=== PATIENT | male | born 1930 | race Caucasian/White ===

== ENCOUNTER 2018-01-06 20:33 | Inpatient (IN) | payer OTHER ==
--- NOTE | 2018-01-06 20:41 | PDOC ---
Rapid Medical Evaluation Chief Complaint: Chest Pain Time Seen by Provider: 01/06/18 20:36 Medical Evaluation: Allergies Allergy/AdvReac Type Severity Reaction Status Date / Time No Known Drug Allergies Allergy Unverified 08/23/14 13:27 01/06/18 20:36 Pt presents with one week of chest pain and shortness of breath. Admits to cough. Also endorses a 15 lb weight gain over the last week. Sleeping on two pillows Exam: O2 Sat 91%, lungs with decreased sounds to the bases Orders: labs, EKG, IV, urine, cxr Pt to proceed to ED for further evaluation Discharge Disposition - Diagnosis Shortness of breath - Referrals - Patient Instructions - Post Discharge Activity
[2018-01-06 21:14] LABS: BASO % 0.8 % (0-2.0); EOS % 1.7 % (0-4.5); HEMATOCRIT 36.7 % (35.4-49); HEMOGLOBIN 12.5 GM/dL (11.7-16.9); LYMPH % 10.6 % (8-40); MCH 30.4 pg (25.7-33.7); MEAN CELL VOLUME 89.4 fl (80-96); MEAN PLT VOLUME 7.8 fl (7.5-11.1); MONO % 9.1 % (3.8-10.2); NEUT % 77.8 % (42.8-82.8); PLATELET COUNT 214 K/MM3 (134-434); RDW 14.9 % (11.9-15.9); WHITE BLOOD COUNT 8.5 K/mm3 (4.0-10.0)
[2018-01-06 21:42] LABS: INR 1.12 (0.83-1.09); PROTHROMBIN TIME (PATIENT) 13.2 SEC (9.7-13.0)
[2018-01-06 21:59] LABS: ALK PHOS 106 U/L (45-117); ANION GAP 13 MMOL/L (8-16); BILIRUBIN,TOTAL 1.5 mg/dL (0.2-1); BLOOD UREA NITROGEN 33 mg/dL (7-18); CALCIUM 8.7 mg/dL (8.5-10.1); CHLORIDE 95 mmol/L (98-107); CO2 24 mmol/L (22-28); CREATININE 1.4 mg/dL (0.55-1.3); GLUCOSE,RANDOM 140 mg/dL (74-106); MAGNESIUM 1.8 mg/dL (1.8-2.4); N-TERMINAL BNP 10045.1 pg/ml (5-450); POTASSIUM 3.7 mmol/L (3.5-5.1); SGOT/AST 39 U/L (15-37); SGPT/ALT 42 U/L (13-61); SODIUM 132 mmol/L (136-145); TOT PROT 7.5 g/dl (6.4-8.2)
[2018-01-06] MEDS ORDERED: FUROSEMIDE 40 MG/4 ML INJECTABLE VIAL IVPUSH ONE (22:02)
[2018-01-06 22:11] LABS: BASO % 0.9 % (0-2.0); EOS % 1.6 % (0-4.5); HEMOGLOBIN 12.3 GM/dL (11.7-16.9); LYMPH % 11.4 % (8-40); MCH 30.5 pg (25.7-33.7); MCHC 34.1 g/dl (32.0-35.9); MEAN CELL VOLUME 89.5 fl (80-96); MEAN PLT VOLUME 7.3 fl (7.5-11.1); MONO % 9.9 % (3.8-10.2); NEUT % 76.2 % (42.8-82.8); PLATELET COUNT 219 K/MM3 (134-434); RBC 4.02 M/mm3 (4.00-5.60); RDW 14.3 % (11.9-15.9); WHITE BLOOD COUNT 7.9 K/mm3 (4.0-10.0)
[2018-01-06] MEDS ORDERED: ASPIRIN COATED 81 MG TABLET.EC PO ONE (22:13)
[2018-01-06 22:22] LABS: INR 1.15 (0.83-1.09); PROTHROMBIN TIME (PATIENT) 13.6 SEC (9.7-13.0)
--- NOTE | 2018-01-06 22:31 | PDOC ---
History of Present Illness - General History Source: Patient, Primary Care Provider Exam Limitations: Dementia - History of Present Illness Initial Comments: 01/06/18 22:29 The patient is an 87M with a PMH of HTN, EF < 20%, implanted defibrillator, noncompliant, prostate ca w/ questionable mets, T2DM, LBBB, cardiomyopathy who presents to the ER with his for complaints of SOB. The patient cannot provide any history and his provides little history. History is provided by his PCP. His PCP, Dr. Lloyd, states that the patient has had worsening SOB for the past week or two with orthopnea and chronic cough. The patient is noncompliant with his medications. The patient's only acute complaints is that he cannot lay down flat. He denies any CP, fevers, chills, nausea, vomiting. Cards: Dr. Shukla at [facility] <Harsh Mcdermott - Last Filed: 01/07/18 00:08> <Champ Bob - Last Filed: 01/10/18 08:04> - General Chief Complaint: Chest Pain Stated Complaint: CHEST PAIN Time Seen by Provider: 01/06/18 20:36 Past History - Past Medical History Anemia: No Asthma: No Cancer: Yes (PROSTATE) Cardiac Disorders: Yes (ANGINA;CARDIOMYOPATHY;LBBB) COPD: No Dementia: No Diabetes: No GI Disorders: No Disorders: No HTN: Yes Hypercholesterolemia: Yes Seizures: No Thyroid Disease: No - Surgical History Abdominal Surgery: (HERNIA) Appendectomy: No Cholecystectomy: No Lung Surgery: No Neurologic Surgery: No - Suicide/Smoking/Psychosocial Hx Smoking Status: No Smoking History: Former smoker Have you smoked in the past 12 months: Yes Number of Cigarettes Smoked Daily: 0 Information on smoking cessation initiated: No Hx Alcohol Use: No Drug/Substance Use Hx: No Substance Use Type: None Hx Substance Use Treatment: No <Harsh Mcdermott - Last Filed: 01/07/18 00:08> <Champ Bob - Last Filed: 01/10/18 08:04> - Past Medical History Allergies/Adverse Reactions: Allergies Allergy/AdvReac Type Severity Reaction Status Date / Time No Known Drug Allergies Allergy Unverified 01/07/18 07:56 Home Medications: Ambulatory Orders Atorvastatin Ca [Lipitor] 1 tab PO DAILY 12/24/13 Ranitidine HCl [Zantac] 150 mg PO DAILY 12/25/13 Aspirin 81 mg PO DAILY 08/23/14 Folic Acid 1 mg PO DAILY 01/06/18 Furosemide [Lasix] 40 mg PO BID 01/06/18 Isosorbide Mononitrate [Isosorbide Mononitrate ER] 60 mg PO BID 01/06/18 Losartan Potassium 100 mg PO DAILY 01/06/18 Metoprolol Tartrate [Lopressor] 100 mg PO DAILY 01/06/18 Spironolactone [Aldactone -] 25 mg PO DAILY 01/06/18 Carvedilol [Coreg -] 3.125 mg PO BID #60 tablet 01/09/18 Potassium Chloride [Potassium Chloride Oral Liquid] 40 meq PO DAILY 30 Days cup 01/09/18 Review of Systems - Review of Systems Able to Perform ROS?: No (dementia) <Harsh Mcdermott - Last Filed: 01/07/18 00:08> *Physical Exam - Vital Signs Last Vital Signs Temp Pulse Resp BP Pulse Ox 97.8 F 104 H 24 H 131/85 91 L 01/06/18 20:36 01/06/18 20:36 01/06/18 20:36 01/06/18 20:36 01/06/18 20:36 - Physical Exam Comments: 01/07/18 00:16 GENERAL: Well developed, well nourished. Awake and alert. No acute distress. HEENT: Normocephalic, atraumatic. Hearing grossly normal. Moist mucous membranes. PERRLA, EOMI. No conjunctival pallor. Sclera are non-icteric. NECK: Supple. Full ROM. No JVD. CARDIOVASCULAR: Regular rate and rhythm. No murmurs, rubs, or gallops. PULMONARY: No evidence of respiratory distress. Lungs clear to auscultation bilaterally. No wheezing, rales or rhonchi. ABDOMINAL: Soft. Non-tender. Non-distended. No rebound or guarding. GENITOURINARY: No CVA tenderness bilaterally. MUSCULOSKELETAL: Normal range of motion at all joints. No bony deformities or tenderness. EXTREMITIES: No cyanosis. No clubbing. 4+ pitting edema in b/l LE. No calf tenderness or swelling. SKIN: Warm and dry. Normal capillary refill. No rashes. No jaundice. NEUROLOGICAL: Alert, awake, appropriate. Cranial nerves 2-12 grossly intact. Normal speech. Gait is normal without ataxia. PSYCHIATRIC: Cooperative. Good eye contact. Appropriate mood and affect. <Harsh Mcdermott - Last Filed: 01/07/18 00:08> - Vital Signs Last Vital Signs Temp Pulse Resp BP Pulse Ox 97.6 F 96 H 20 128/89 96 01/09/18 09:07 01/09/18 09:07 01/09/18 09:07 01/09/18 09:07 01/08/18 22:00 <Champ Bob - Last Filed: 01/10/18 08:04> ED Treatment Course - LABORATORY CBC & Chemistry Diagram: 01/06/18 21:55 01/06/18 21:55 - ADDITIONAL ORDERS Additional order review: Laboratory Results 01/06/18 01/06/18 01/06/18 21:55 21:04 21:04 PT with INR 13.60 H INR 1.15 H Sodium 132 L Potassium 3.7 Chloride 95 L Carbon Dioxide 24 Anion Gap 13 BUN 33 H Creatinine 1.4 H Creat Clearance w eGFR 48.05 Random Glucose 140 H Calcium 8.7 Magnesium 1.8 Total Bilirubin 1.5 H AST 39 H ALT 42 Alkaline Phosphatase 106 Creatine Kinase 316 H Troponin I 0.21 H B-Natriuretic Peptide 43360.1 H Total Protein 7.5 Albumin 4.0 01/06/18 21:04 PT with INR 13.20 H INR 1.12 H Sodium Potassium Chloride Carbon Dioxide Anion Gap BUN Creatinine Creat Clearance w eGFR Random Glucose Calcium Magnesium Total Bilirubin AST ALT Alkaline Phosphatase Creatine Kinase Troponin I B-Natriuretic Peptide Total Protein Albumin 01/06/18 01/06/18 21:55 21:04 RBC 4.02 4.10 MCV 89.5 89.4 MCHC 34.1 34.0 RDW 14.3 14.9 MPV 7.3 L 7.8 Neutrophils % 76.2 77.8 D Lymphocytes % 11.4 10.6 D Monocytes % 9.9 9.1 Eosinophils % 1.6 1.7 Basophils % 0.9 0.8 <Harsh Mcdermott - Last Filed: 01/07/18 00:08> - LABORATORY CBC & Chemistry Diagram: 01/09/18 05:45 01/09/18 05:45 - ADDITIONAL ORDERS Additional order review: 01/06/18 01/06/18 21:55 21:04 RBC 4.02 4.10 MCV 89.5 89.4 MCHC 34.1 34.0 RDW 14.3 14.9 MPV 7.3 L 7.8 Neutrophils % 76.2 77.8 D Lymphocytes % 11.4 10.6 D Monocytes % 9.9 9.1 Eosinophils % 1.6 1.7 Basophils % 0.9 0.8 - Medications Given in the ED: ED Medications Discontinued Medications Generic Name Dose Route Start Last Admin Trade Name Erna PRN Reason Stop Dose Admin Aspirin 162 mg 01/06/18 22:13 01/06/18 23:00 Ecotrin - PO 01/06/18 22:14 162 mg ONCE ONE Administration Aspirin 81 mg 01/07/18 10:00 01/08/18 09:10 Asa - PO 81 mg DAILY SUDHAKAR Administration Carvedilol 3.125 mg 01/08/18 22:00 01/08/18 22:18 Coreg - PO Not Given BID SUDHAKAR Folic Acid 1 mg 01/07/18 10:00 01/08/18 09:10 Folic Acid - PO 1 mg DAILY SUDHAKAR Administration Furosemide 80 mg 01/06/18 22:02 01/06/18 22:59 Lasix Injection - IVPUSH 01/06/18 22:03 80 mg ONCE ONE Administration Furosemide 40 mg 01/07/18 07:15 01/09/18 06:36 Lasix Injection - IVPUSH 40 mg BID@0600,1400 SUDHAKAR Administration Heparin Sodium (Porcine) 5,000 unit 01/07/18 10:00 01/08/18 22:18 Heparin - SQ Not Given BID [facility] Insulin Aspart 1 vial 01/08/18 22:00 01/09/18 06:31 Novolog Vial Sliding Scale - SQ Not Given ACHS [facility] Protocol Ipratropium Raymond 1 amp 01/09/18 06:50 01/09/18 06:56 Atrovent 0.02% Nebulizer - NEB 01/09/18 06:51 1 amp ONCE ONE Administration Isosorbide Mononitrate 60 mg 01/07/18 10:00 01/08/18 09:09 Imdur - PO 60 mg DAILY SUDHAKAR Administration Losartan Potassium 100 mg 01/07/18 10:00 01/08/18 09:10 Cozaar - PO 100 mg DAILY SUDHAKAR Administration Potassium Chloride 40 meq 01/08/18 16:00 01/09/18 06:36 Potassium Chloride Oral Liquid PO 01/09/18 16:01 40 meq Q12H SUDHAKAR Administration Spironolactone 25 mg 01/07/18 10:00 01/08/18 09:10 Aldactone - PO 25 mg DAILY SUDHAKAR Administration <Champ Bob - Last Filed: 01/10/18 08:04> Medical Decision Making - Medical Decision Making 01/06/18 23:33 The patient is an 88M with a PMH of CHF with EF <20% who presents to the ER with worsening orthopnea and SOB concerning for CHF exacerbation, ACS, COPD ( possibly diagnosis per Dr. Lloyd). CXR indicates interstitial edema indicating CHF. BNP elevated. Trop of 0.2, likely demand ischemia. Results d/w Dr. Lloyd who agrees. Giving lasix and asa. I have endorsed the patient to [facility] for admission under Dr. Campbell. <Harsh Mcdermott - Last Filed: 01/07/18 00:08> - Critical Care Time Total Critical Care Time (minutes): 45 Critical Care Statement: The care of this patient involved high complexity decision making to prevent further life threatening deterioration of the patient 's condition and/or to evaluate & treat vital organ system(s) failure or risk of failure. <Champ Bob - Last Filed: 01/10/18 08:04> *DC/Admit/Observation/Transfer - Discharge Dispostion Decision to Admit order: Yes <Harsh Mcdermott - Last Filed: 01/07/18 00:08> <Champ Bob - Last Filed: 01/10/18 08:04> Diagnosis at time of Disposition: Shortness of breath Acute exacerbation of CHF (congestive heart failure) Qualifiers: Heart failure type: unspecified Qualified Code(s): I50.9 - Heart failure, unspecified - Discharge Dispostion Disposition: HOME Condition at time of disposition: Improved
[2018-01-06] MEDS ORDERED: ASPIRIN COATED 81 MG TABLET.EC ONE (22:39)
[2018-01-06] MEDS ORDERED: FUROSEMIDE 40 MG/4 ML INJECTABLE VIAL ONE (22:39)
[2018-01-06 22:47] LABS: ALK PHOS 105 U/L (45-117); ANION GAP 13 MMOL/L (8-16); BILIRUBIN,TOTAL 1.5 mg/dL (0.2-1); BLOOD UREA NITROGEN 32 mg/dL (7-18); CALCIUM 8.8 mg/dL (8.5-10.1); CHLORIDE 95 mmol/L (98-107); CO2 25 mmol/L (22-28); CREATININE 1.3 mg/dL (0.55-1.3); GLUCOSE,RANDOM 123 mg/dL (74-106); MAGNESIUM 1.9 mg/dL (1.8-2.4); N-TERMINAL BNP 9827.3 pg/ml (5-450); POTASSIUM 3.7 mmol/L (3.5-5.1); SGOT/AST 39 U/L (15-37); SGPT/ALT 40 U/L (13-61); SODIUM 133 mmol/L (136-145); TOT PROT 7.3 g/dl (6.4-8.2)
--- NOTE | 2018-01-06 23:05 | PDOC ---
Attending Attestation - Resident Resident Name: Harsh Mcdermott - ED Attending Attestation I have performed the following: I have examined & evaluated the patient, The case was reviewed & discussed with the resident, I agree w/resident's findings & plan, Exceptions are as noted - HPI HPI: 01/06/18 23:01 The patient is a 87 year old male with past medical history significant for Prostate CA, HTN, HLD, LBBB, DM2, cardiomyopathy, CHF presents to the emergency department with chest pain and shortness of breath. The patient presents with a one-week onset of shortness of breath and chest pain, associated with a nonproductive cough. The patient reports he has to sleep on 2 pillows at night. Denies fever, chills, abdominal pain, urinary symptoms or changes in bowel habits. Allergies: NKDA. Social history: Former smoker, no alcohol or recreational drug use reported. Surgical history: Hernia. PCP: Lynsey Sun. 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 - Physicial Exam PE: 01/06/18 23:03 GENERAL: Awake, alert, and fully oriented, in no acute distress. HEAD: No signs of trauma EYES: PERRLA, EOMI, sclera anicteric, conjunctiva clear ENT: Auricles normal inspection, hearing grossly normal, nares patent, oropharynx clear without exudates. Moist mucosa NECK: Nontender, no stepoffs, Normal ROM, supple, no lymphadenopathy, JVD, or masses LUNGS: + bilateral rales HEART: Regular rate and rhythm, normal S1 and S2, no murmurs, rubs or gallops ABDOMEN: Soft, nontender, normoactive bowel sounds. No guarding, no rebound. No masses EXTREMITIES: + 2PE BLE NEUROLOGICAL: Cranial nerves II through XII intact. 5/5 strength and sensation in all extremities, Normal speech, normal gait, normal cerebellar function SKIN: Warm, Dry, normal turgor, no rashes or lesions noted. - Medical Decision Making 01/06/18 23:04 87 M with CP/SOB. Exam notable for rales and pitting edema of BLE. Likely CHF exacerbation. - Labs, trop, BNP - CXR - Lasix - BiPAP PRN - Admit tele
--- NOTE | 2018-01-06 23:31 | HP ---
CHIEF COMPLAINT: Chest Pain, Increased SOB, B/L Lower Extremity Swelling PCP: Dr. Ze Lloyd HISTORY OF PRESENT ILLNESS: This is a 88 y/o man with significant past medical history of Hypertension, EF < 20% s/p Defibrillator, Cardiomyopathy, DM, Prostate Ca ?Mets, Dementia, Noncompliant with medications. Who presents to the ED with his caregiver for Chest Pain, SOB, Orthopnea, lower extremity swelling x 1 week, worse today. Patient is [place] his caregiver translated. Patient reports having SOB, WATSON , Orthopnea, CP and a non-productive cough. Patient also reports having lower extremity swelling with leg weakness. Per the caregiver patient sits up all night because of his SOB, he is unable to take more then 5-6 steps without labored breathing. Per the caregiver, the patient took his medications yesterday and today. Per the caregiver the patient has had abdominal distention , and reports abdominal pain after eating. She also reports a 5-6lb weight gain over the last several days. Patient denies fever, chills, dizziness, palpitations, AP, N/V/D, dysuria ER course was notable for: (1) Chest Xray image- pulm vascular congestion (2) BNP 10,045 (3) Trop 0.21 Recent Travel: None PAST MEDICAL HISTORY: See HPI PAST SURGICAL HISTORY: Defibrillator Hernia Repair Social History: Smoking: Former Alcohol: None Drugs: None Lives with family Family History: Allergies No Known Drug Allergies Allergy (Unverified 01/06/18 20:39) HOME MEDICATIONS: Home Medications Medication Instructions Recorded Atorvastatin Ca [Lipitor] 1 tab PO DAILY 12/24/13 Cholecalciferol (Vitamin D3) 1 tab PO DAILY 12/24/13 [Vitamin D3] Isosorbide Mononitrate 1 tab PO DAILY 12/24/13 Losartan/Hydrochlorothiazide 1 tab PO DAILY 12/24/13 Social History Smoking history Former smoker Have you smoked in the past 12 Yes months Hx Alcohol Use No [Losartan-Hctz 50-12.5 mg Tab] Ranitidine HCl [Zantac] 150 mg PO DAILY 12/25/13 Aspirin 81 mg PO DAILY 08/23/14 Atorvastatin Calcium #90 08/23/14 Celecoxib #30 08/23/14 Isosorbide Mononitrate [Isosorbide #90 06/26/15 Mononitrate Er] Losartan/Hydrochlorothiazide #90 08/23/14 [Losartan-Hctz 50-12.5 Mg Tab] Meclizine HCl #90 08/23/14 Ranitidine HCl #60 08/23/14 FA/Mv,Ca,Iron,Min/Lycopene/Lut 1 each PO DAILY 11/18/14 [Centrum Tablet] Meclizine HCl 25 mg PO DAILY 11/18/14 REVIEW OF SYSTEMS CONSTITUTIONAL: generalized weakness,weight change Absent: fever, chills, diaphoresis, malaise, loss of appetite HEENT: Absent: rhinorrhea, nasal congestion, throat pain, throat swelling, difficulty swallowing, mouth swelling, ear pain, eye pain, visual changes CARDIOVASCULAR: chest pain, peripheral edema Absent: syncope, palpitations, irregular heart rate, lightheadedness RESPIRATORY: cough, shortness of breath, dyspnea with exertion, orthopnea, Absent: wheezing, stridor, hemoptysis GASTROINTESTINAL: abdominal distension Absent: abdominal pain, nausea, vomiting, diarrhea, constipation, melena, hematochezia GENITOURINARY: Absent: dysuria, frequency, urgency, hesitancy, hematuria, flank pain, genital pain MUSCULOSKELETAL: Absent: myalgia, arthralgia, joint swelling, back pain, neck pain SKIN: Absent: rash, itching, pallor HEMATOLOGIC/IMMUNOLOGIC: Absent: easy bleeding, easy bruising, lymphadenopathy, frequent infections ENDOCRINE: Absent: unexplained weight gain, unexplained weight loss, heat intolerance, cold intolerance NEUROLOGIC: Absent: headache, focal weakness or paresthesias, dizziness, unsteady gait, seizure, mental status changes, bladder or bowel incontinence PSYCHIATRIC: Absent: anxiety, depression, suicidal or homicidal ideation, hallucinations. PHYSICAL EXAMINATION Vital Signs - 24 hr 01/06/18 20:36 Temperature 97.8 F Pulse Rate 104 H Respiratory 24 H Rate Blood Pressure 131/85 O2 Sat by Pulse 91 L Oximetry (%) GENERAL: Awake, alert, and fully oriented, in no acute distress. HEAD: Normal with no signs of trauma. EYES: Pupils equal, round and reactive to light, extraocular movements intact, sclera anicteric, conjunctiva clear. No lid lag. EARS, NOSE, THROAT: Ears normal, nares patent, oropharynx clear without exudates. Moist mucous membranes. NECK: Normal range of motion, supple without lymphadenopathy, JVD, or masses. LUNGS: Coarse crackles and rales throughout lung grubbs. No wheezes. No accessory muscle use. HEART: Irregular rate and rhythm, normal S1 and S2 without murmur, rub or gallop. ABDOMEN: Firm, distended, hypoactive bowel sounds,+ hepatomegaly. nontender, no guarding, no rebound, no masses. or splenomegaly. MUSCULOSKELETAL: Normal range of motion at all joints. No bony deformities or tenderness. No CVA tenderness. UPPER EXTREMITIES: 2+ pulses, warm, well-perfused. No cyanosis. No clubbing. No peripheral edema. LOWER EXTREMITIES: 2+ pulses, warm, well-perfused. No calf tenderness. +2 pitting B/L peripheral edema. NEUROLOGICAL: Cranial nerves II-XII intact. Normal speech. Gait not observed. PSYCHIATRIC: Cooperative. Good eye contact. Appropriate mood and affect. SKIN: Warm, dry, normal turgor, no rashes or lesions noted, normal capillary refill. Laboratory Results - last 24 hr 01/06/18 01/06/18 01/06/18 21:04 21:04 21:04 WBC 8.5 RBC 4.10 Hgb 12.5 Hct 36.7 D MCV 89.4 MCH 30.4 MCHC 34.0 RDW 14.9 Plt Count 214 MPV 7.8 Absolute Neuts (auto) 6.6 Neutrophils % 77.8 D Lymphocytes % 10.6 D Monocytes % 9.1 Eosinophils % 1.7 Basophils % 0.8 Nucleated RBC % 0 PT with INR 13.20 H INR 1.12 H Sodium 132 L Potassium 3.7 Chloride 95 L Carbon Dioxide 24 Anion Gap 13 BUN 33 H Creatinine 1.4 H Creat Clearance w eGFR 48.05 Random Glucose 140 H Calcium 8.7 Magnesium 1.8 Total Bilirubin 1.5 H AST 39 H ALT 42 Alkaline Phosphatase 106 Creatine Kinase Creatine Kinase Index CK-MB (CK-2) Troponin I B-Natriuretic Peptide 18477.1 H Total Protein 7.5 Albumin 4.0 01/06/18 01/06/18 01/06/18 21:04 21:55 21:55 WBC RBC Hgb Hct MCV MCH MCHC RDW Plt Count MPV Absolute Neuts (auto) Neutrophils % Lymphocytes % Monocytes % Eosinophils % Basophils % Nucleated RBC % PT with INR 13.60 H INR 1.15 H Sodium 133 L Potassium 3.7 Chloride 95 L Carbon Dioxide 25 Anion Gap 13 BUN 32 H Creatinine 1.3 Creat Clearance w eGFR 52.34 Random Glucose 123 H Calcium 8.8 Magnesium 1.9 Total Bilirubin 1.5 H AST 39 H ALT 40 Alkaline Phosphatase 105 Creatine Kinase 316 H Creatine Kinase Index 3.8 CK-MB (CK-2) 12.1 H Troponin I 0.21 H B-Natriuretic Peptide 9827.3 H Total Protein 7.3 Albumin 4.0 01/06/18 21:55 WBC 7.9 RBC 4.02 Hgb 12.3 Hct 36.0 MCV 89.5 MCH 30.5 MCHC 34.1 RDW 14.3 Plt Count 219 MPV 7.3 L Absolute Neuts (auto) 6.1 Neutrophils % 76.2 Lymphocytes % 11.4 Monocytes % 9.9 Eosinophils % 1.6 Basophils % 0.9 Nucleated RBC % 0 PT with INR INR Sodium Potassium Chloride Carbon Dioxide Anion Gap BUN Creatinine Creat Clearance w eGFR Random Glucose Calcium Magnesium Total Bilirubin AST ALT Alkaline Phosphatase Creatine Kinase Creatine Kinase Index CK-MB (CK-2) Troponin I B-Natriuretic Peptide Total Protein Albumin ASSESSMENT/PLAN: This is a 88 y/o man with PMHx of: HTN, EF 20%, Defib, LBBB, Cardiomyopathy, DM , Prostate Ca ?METs, Dementia. Admitted to Telemetry for Acute CHF Exacerbation , Chest Pain r/o ACS or further evaluation of their emergent condition. Plan: FEN Fluid Restriction 1L Replete Lytes prn Low Na, Diabetic Diet DVT ppx TEDs Heparin SQ Dispo: Requires Inpatient Care Problem List - Problem (1) Acute exacerbation of CHF (congestive heart failure) Assessment/Plan: - Continue cardiac monitoring - Serial Enzymes - Chest Xray- image pulm vascular congestion - BNP > 10,000 - Lasix given in ED, will continue - Appreciate Cardiology consult - Strict INOs - Daily weights - O2 - Continue home meds - Monitor CBC, BMP in am Code(s): I50.9 - HEART FAILURE, UNSPECIFIED Qualifiers: Heart failure type: unspecified Qualified Code(s): I50.9 - Heart failure, unspecified (2) Shortness of breath Assessment/Plan: - Likely secondary to CHF flare - Continue Lasix - O2 - Monitor vitals Code(s): R06.02 - SHORTNESS OF BREATH (3) Chest pain Assessment/Plan: - r/o ACS - Cardiac monitoring - HEART Score 6 - Serial Enzymes - 0.21 likely secondary to ischemic demand, will trend - Appreciate Cardiology consult - Asa given in ED, continue - Mg, Phos, Lipid Panel, HgbA1c in am - Echo Code(s): R07.9 - CHEST PAIN, UNSPECIFIED (4) Abdominal distention Assessment/Plan: r/o Obstruction vs Malignancy Abdominal US-pending Appreciate GI consult Monitor CBC, BMP in am Monitor vitals Code(s): R14.0 - ABDOMINAL DISTENSION (GASEOUS) (5) HTN (hypertension) Assessment/Plan: - stable - Continue home meds with parameters - Monitor renal function Code(s): I10 - ESSENTIAL (PRIMARY) HYPERTENSION (6) Cardiomyopathy Code(s): I42.9 - CARDIOMYOPATHY, UNSPECIFIED (7) Diabetes mellitus Assessment/Plan: - controlled - BGMs - ISS - Check HgbA1c Code(s): E11.9 - TYPE 2 DIABETES MELLITUS WITHOUT COMPLICATIONS (8) Prostate CA Assessment/Plan: Consider Urology consult or f/u in outpatient Code(s): C61 - MALIGNANT NEOPLASM OF PROSTATE (9) Dementia Assessment/Plan: Continue to treat with interventions accordingly Code(s): F03.90 - UNSPECIFIED DEMENTIA WITHOUT BEHAVIORAL DISTURBANCE Visit type - Emergency Visit Emergency Visit: Yes ED Registration Date: 01/06/18 Care time: The patient presented to the Emergency Department on the above date and was hospitalized for further evaluation of their emergent condition. - New Patient This patient is new to me today: Yes Date on this admission: 01/06/18 - Critical Care Critical Care patient: No
[2018-01-07 00:45] LABS: URINE APPEARANCE CLEAR; URINE BILIRUBIN NEGATIVE (<2.0 mg/dL); URINE COLOR COLORLESS; URINE GLUCOSE (UA) NEGATIVE (NEGATIVE); URINE KETONE NEGATIVE (NEGATIVE); URINE LEUK ESTERASE NEGATIVE (NEGATIVE); URINE NITRITE NEGATIVE (NEGATIVE); URINE PROTEIN NEGATIVE (NEGATIVE); URINE UROBILINOGEN NEGATIVE mg/dL (0.2-1.0)
[2018-01-07 05:20] LABS: BASO % 1.2 % (0-2.0); EOS % 3.4 % (0-4.5); HEMATOCRIT 36.5 % (35.4-49); HEMOGLOBIN 12.1 GM/dL (11.7-16.9); LYMPH % 17.4 % (8-40); MCH 29.5 pg (25.7-33.7); MCHC 33.1 g/dl (32.0-35.9); MEAN CELL VOLUME 89.3 fl (80-96); MEAN PLT VOLUME 7.5 fl (7.5-11.1); MONO % 10.5 % (3.8-10.2); NEUT % 67.5 % (42.8-82.8); PLATELET COUNT 195 K/MM3 (134-434); RBC 4.09 M/mm3 (4.00-5.60); RDW 14.8 % (11.9-15.9); WHITE BLOOD COUNT 7.4 K/mm3 (4.0-10.0)
[2018-01-07 05:45] LABS: ANION GAP 10 MMOL/L (8-16); BLOOD UREA NITROGEN 32 mg/dL (7-18); CALCIUM 8.7 mg/dL (8.5-10.1); CHLORIDE 95 mmol/L (98-107); CHOLESTEROL 129 mg/dL (50-200); CO2 30 mmol/L (22-28); CREATININE 1.3 mg/dL (0.55-1.3); GLUCOSE,RANDOM 125 mg/dL (74-106); HDL CHOLESTEROL 66 mg/dL (40-60); MAGNESIUM 1.9 mg/dL (1.8-2.4); PHOSPHOROUS 4.4 mg/dL (2.5-4.9); POTASSIUM 3.4 mmol/L (3.5-5.1); SODIUM 134 mmol/L (136-145); TRIGLYCERIDES 80 mg/dL (0-150)
[2018-01-07] MEDS ORDERED: FUROSEMIDE 40 MG/4 ML INJECTABLE VIAL ONE (07:55)
[2018-01-07] MEDS: FUROSEMIDE 40 MG/4 ML INJECTABLE VIAL IVPUSH SCH ×2 (07:56→15:05)
[2018-01-07] MEDS: ASPIRIN 81 MG CHEWABLE TABLETS PO SCH (10:18)
[2018-01-07] MEDS: SPIRONOLACTONE 25 MG TABLET (FP) PO SCH (10:18)
[2018-01-07] MEDS: FOLIC ACID 1 MG TABLET (FP) PO SCH (10:31)
[2018-01-07] MEDS: HEPARIN NA (PORCINE) 5,000 UNITS/ML 1ML VIAL SQ SCH ×2 (10:31→21:43)
[2018-01-07] MEDS: LOSARTAN POTASSIUM 50 MG TABLET (FP) PO SCH (10:31)
[2018-01-07] MEDS: ISOSORBIDE MONONITRATE 60 MG TAB.SR.24H (FP) PO SCH (10:32)
[2018-01-07 11:18] LABS: BASO % 1.3 % (0-2.0); HEMATOCRIT 36.8 % (35.4-49); HEMOGLOBIN 12.6 GM/dL (11.7-16.9); LYMPH % 12.2 % (8-40); MCH 30.6 pg (25.7-33.7); MCHC 34.1 g/dl (32.0-35.9); MEAN CELL VOLUME 89.7 fl (80-96); MEAN PLT VOLUME 7.8 fl (7.5-11.1); MONO % 8.8 % (3.8-10.2); NEUT % 75.7 % (42.8-82.8); PLATELET COUNT 208 K/MM3 (134-434); RBC 4.11 M/mm3 (4.00-5.60); RDW 14.9 % (11.9-15.9)
[2018-01-07 12:39] VITALS: BMI 26.9
--- NOTE | 2018-01-07 14:44 | CON.GI ---
Consult Consult Specialty:: GI: Dr. Jack covering for Dr. Perez, who resumes care tuesday 01/09 Referred by:: Dr. Ze Lloyd Reason for Consultation:: R/O metastatic disease - History of Present Illness Chief Complaint: Obtained by Ricky: worsening shortness of breath, chest pain and dyspnea on exertion History of Present Illness: 88M admitted for evaluation of progressive SOB, WATSON and chest pain on exertion. History obtained from his Ricky who was present bedside. I was asked to evaluate because it was felt his abdomen is distended. Abdominal US failed to reveal ascites. It revealed a 3cm right renal mass, unchanged from prior imaging studies, cholelithiasis and a left pleural effusion. The CBD was described as mildly prominent, unchanged from 09/13 imaging. He denies abdominal pain. There has been no weight loss. There has been no vomiting / change in bowel habits. It appears as though he had an unrevealing EGD in 2013 as well as a colonsocopy 11/18/[address] Rae Davidson. It revealed 1 1cm sessil tubular adenoma of the cecum and a 4cm x 3.5cm 1/4 circumferantial mass of the ascending colon, biopsies of which revealed tubular adenoma with high grade dysplasia and evidence of intramucosal adenocarcinoma. He does not have scars suggestive of a surgical intervention and his is vague if he had a follow-up colonoscopy for further treatment of this. At one point of the conversation she explained that they opted to not have further treatment. The last cross sectional imaging he underwent appeared to be a CT scan of the abdomen and pelvis with PO/IV contrast 06/24/16 that revealed a solid right renal mass, enlarged prostate and cholelithiasis. - History Source History Provided By: Patient, Medical Record Limitations to Obtaining History: Poor Historian - Past Medical History Cardio/Vascular: Yes: CAD, CHF (EF 20% per the chart), HTN, Hyperlipdemia Gastrointestinal: Yes: Cancer (Ascnding colon cancer 11/12) Hepatobiliary: Yes: Cholelithiasis Renal/: Yes: Cancer (prostate cancer followed by Dr. Cash) - Past Surgical History Additional Surgical History: upper abdominal surgery to remove a "piece of bone " per his - Alcohol/Substance Use Hx Alcohol Use: Yes (socially in past) History of Substance Use: reports: None - Smoking History Smoking history: Former smoker Have you smoked in the past 12 months: No Aproximately how many cigarettes per day: 0 If you are a former smoker, when did you quit?: 25 years ago - Social History Usual Living Arrangement: With Spouse ADL: Independent Place of : Other ([facility]) History of Recent Travel: No Home Medications - Allergies Allergies/Adverse Reactions: Allergies Allergy/AdvReac Type Severity Reaction Status Date / Time No Known Drug Allergies Allergy Unverified 01/07/18 07:56 - Home Medications Home Medications: Ambulatory Orders Atorvastatin Ca [Lipitor] 1 tab PO DAILY 12/24/13 Ranitidine HCl [Zantac] 150 mg PO DAILY 12/25/13 Aspirin 81 mg PO DAILY 08/23/14 Folic Acid 1 mg PO DAILY 01/06/18 Furosemide [Lasix] 40 mg PO BID 01/06/18 Isosorbide Mononitrate [Isosorbide Mononitrate ER] 60 mg PO BID 01/06/18 Losartan Potassium 100 mg PO DAILY 01/06/18 Metoprolol Tartrate [Lopressor] 100 mg PO DAILY 01/06/18 Spironolactone [Aldactone] 25 mg PO DAILY 01/06/18 Family Disease History - Family Disease History Family Disease History: Other: Father (: 60's: unclear cause), Mother ( : 83: PNA), Brother (1, : age 87(DM II / CAD)), Son (2, 1 age 56: unclear cause), Daughter (3, healthy) Other Family History: no family history of colorectal cancer or other GI malignancy Review of Systems - Review of Systems Constitutional: reports: Weakness. denies: Chills, Unintentional Wgt. Loss Cardiovascular: reports: Chest Pain Respiratory: reports: Orthopnea, SOB, SOB on Exertion Gastrointestinal: reports: Bloating. denies: Abdominal Pain, Constipation, Diarrhea, Indigestion, Melena, Nausea, Rectal Bleeding, Vomiting Physical Exam-GI Vital Signs: Vital Signs Temperature 97.8 F 01/07/18 12:09 Pulse Rate 73 01/07/18 12:09 Respiratory Rate 22 H 01/07/18 12:09 Blood Pressure 138/80 01/07/18 12:09 O2 Sat by Pulse Oximetry (%) 98 01/07/18 10:20 Constitutional: Yes: Calm Eyes: No: Sclera Icterus Cardiovascular: Yes: Regular Rate and Rhythm. No: Murmur Respiratory: Yes: Diminished (at bases L>R), Rhonchi (bilaterally), Wheezes ( mild exp. wheezing) Gastrointestinal Inspection: Yes: Hernia (umbilical hernia, non-tender), Scars ( small upper abdominal scar). No: Ascites (No fluid wave), Distention ...Rectal Exam: Yes: Other (refused by patient) Labs: CBC, BMP 01/07/18 10:50 01/07/18 05:00 INR, PTT INR 1.15 (0.83-1.09) H 01/06/18 21:55 Imaging - Results Ultrasound: Report Reviewed Problem List - Problems (1) Abdominal distention Assessment/Plan: Abdomen soft, non-tender, without tympany or fluid wave. Overall sensation of abdominal bloating likely secondary to CHF / right sided heart failure. This may be contributing to the mild elevation in AST and bilirubin as well Recommendations for now: Can obtain MRCP when the patient can lie flat to further evaluate the mildly bilated CBD. This was described as a stable finding from prior imaging CT scan of the abdomen and pelvis with PO/IV contrast can be obtained if renal function remains stable Ordered Hepatitis A/B/C serologies for AM More information regarding if further treatment was undertaken for the right sided intramucosal colon cancer noted on Dr. Rae Davidsno's colonoscopy will need to be obtained. Refused rectal exam during my evaluation. Can obtain stool for occult blood, however it appears as though Mr. Jung and his decline further invasive testing at this timel. Diuresis and treatment of suspected CHF / troponinemia per cardiology / PMD Code(s): R14.0 - ABDOMINAL DISTENSION (GASEOUS)
--- NOTE | 2018-01-07 15:01 | CON.CARD ---
Consult Consult Specialty:: Cardiology consult Reason for Consultation:: CHF - History of Present Illness Chief Complaint: SOB. WATSON History of Present Illness: This is an 87 year old male with a PMH of HTN, systolic CHF, AICD, prostate ca w / questionable mets, T2DM, and a baseline LBBB. He is followed by Dr. Shukla. He presents now with worsening WATSON with orthopnea and cough for 1 - 2 weeks. He is non adherent to his medical regimen. - Past Medical History Cardio/Vascular: Yes: CAD, CHF (EF 20% per the chart), HTN, Hyperlipdemia Gastrointestinal: Yes: Cancer (Ascnding colon cancer 11/12) Hepatobiliary: Yes: Cholelithiasis Renal/: Yes: Cancer (prostate cancer followed by Dr. Cash) - Past Surgical History Additional Surgical History: upper abdominal surgery to remove a "piece of bone " per his - Alcohol/Substance Use Hx Alcohol Use: Yes (socially in past) History of Substance Use: reports: None - Smoking History Smoking history: Former smoker Have you smoked in the past 12 months: No Aproximately how many cigarettes per day: 0 If you are a former smoker, when did you quit?: 25 years ago - Social History Usual Living Arrangement: With Spouse ADL: Independent History of Recent Travel: No Home Medications - Allergies Allergies/Adverse Reactions: Allergies Allergy/AdvReac Type Severity Reaction Status Date / Time No Known Drug Allergies Allergy Unverified 01/07/18 07:56 - Home Medications Home Medications: Ambulatory Orders Atorvastatin Ca [Lipitor] 1 tab PO DAILY 12/24/13 Ranitidine HCl [Zantac] 150 mg PO DAILY 12/25/13 Aspirin 81 mg PO DAILY 08/23/14 Folic Acid 1 mg PO DAILY 01/06/18 Furosemide [Lasix] 40 mg PO BID 01/06/18 Isosorbide Mononitrate [Isosorbide Mononitrate ER] 60 mg PO BID 01/06/18 Losartan Potassium 100 mg PO DAILY 01/06/18 Metoprolol Tartrate [Lopressor] 100 mg PO DAILY 01/06/18 Spironolactone [Aldactone] 25 mg PO DAILY 01/06/18 Family Disease History - Family Disease History Family Disease History: Other: Father (: 60's: unclear cause), Mother ( : 83: PNA), Brother (1, : age 87(DM II / CAD)), Son (2, 1 age 56: unclear cause), Daughter (3, healthy) Other Family History: no family history of colorectal cancer or other GI malignancy Review of Systems Findings/Remarks: As per HPI Vital Signs: Vital Signs Temperature 97.8 F 01/07/18 12:09 Pulse Rate 73 01/07/18 12:09 Respiratory Rate 22 H 01/07/18 12:09 Blood Pressure 138/80 01/07/18 12:09 O2 Sat by Pulse Oximetry (%) 98 01/07/18 10:20 Constitutional: Yes: Well Nourished, No Distress HENT: Yes: WNL Neck: Yes: WNL Respiratory: Yes: Dullness (At bases) Gastrointestinal: Yes: Normal Bowel Sounds Cardiovascular: Yes: Regular Rate and Rhythm (NL S1S2, no MRHG) JVD: Yes Edema: Yes Edema: LLE: 2+, RLE: 2+ Neurological: Yes: Alert, Oriented - Other Data Labs, Other Data: CBC, BMP 01/07/18 10:50 01/07/18 05:00 INR, PTT INR 1.15 (0.83-1.09) H 01/06/18 21:55 Troponin, BNP 01/06/18 01/06/18 01/06/18 21:04 21:04 21:55 Troponin I 0.21 H B-Natriuretic Peptide 18186.1 H 9827.3 H 01/07/18 01/07/18 04:17 10:50 Troponin I 0.28 H 0.21 H B-Natriuretic Peptide Troponin, BNP 01/06/18 01/06/18 01/06/18 21:04 21:04 21:55 Troponin I 0.21 H B-Natriuretic Peptide 78757.1 H 9827.3 H 01/07/18 01/07/18 04:17 10:50 Troponin I 0.28 H 0.21 H B-Natriuretic Peptide Assessment/Plan 87 year old male with a PMH of HTN, systolic CHF, AICD, prostate ca w/ questionable mets, T2DM, and a baseline LBBB. He is followed by Dr. Shukla. He presents now with worsening WATSON with orthopnea and cough for 1 - 2 weeks. He is non adherent to his medical regimen. CHF Acute on chronic systolic CHF Continue IV Lasix 40 mg BID Follow I's/O)'s/Wt's/Lytes Agree with aldactone 25 mg PO daily Continue Imdur Continue Losartan Minimal troponin elevation, likely demand ischemia, follow trends Would continue metoprolol tartrate but would given 50 mg PO BID (not 100 mg daily which is his listed home dose). Will follow with you
[2018-01-08] MEDS: FUROSEMIDE 40 MG/4 ML INJECTABLE VIAL IVPUSH SCH ×2 (06:43→14:01)
[2018-01-08] MEDS ORDERED: PT OWN MED DRAWER 7, Y5N ONE (08:56)
[2018-01-08] MEDS: ISOSORBIDE MONONITRATE 60 MG TAB.SR.24H (FP) PO SCH (09:09)
[2018-01-08] MEDS: SPIRONOLACTONE 25 MG TABLET (FP) PO SCH (09:10)
[2018-01-08] MEDS: HEPARIN NA (PORCINE) 5,000 UNITS/ML 1ML VIAL SQ SCH ×2 (09:10→22:18)
[2018-01-08] MEDS: LOSARTAN POTASSIUM 50 MG TABLET (FP) PO SCH (09:10)
[2018-01-08] MEDS: ASPIRIN 81 MG CHEWABLE TABLETS PO SCH (09:10)
[2018-01-08] MEDS: FOLIC ACID 1 MG TABLET (FP) PO SCH (09:10)
--- NOTE | 2018-01-08 10:03 | PN ---
GI Progress Note Subjective: Patient states able to sleep better last night Evaluatred by cardiology: being treated for acute on chronic CHF - Objective Vital Signs: Vital Signs Temperature 97.5 F L 01/08/18 06:00 Pulse Rate 88 01/08/18 06:00 Respiratory Rate 18 01/08/18 09:00 Blood Pressure 143/85 01/08/18 06:00 O2 Sat by Pulse Oximetry (%) 97 01/08/18 09:00 Constitutional: Calm Eyes: No: Sclera Icterus Cardiovascular: Yes: Regular Rate and Rhythm Respiratory: Yes: Rhonchi (mild) ...Auscultate: Yes: Normoactive Bowel Sounds ...Palpate: No: Tenderness Edema: No (No LE edema) Neurological: Yes: Alert Labs: CBC, BMP 01/07/18 10:50 01/07/18 05:00 INR, PTT INR 1.15 (0.83-1.09) H 01/06/18 21:55 Problem List - Problems (1) Abdominal distention Assessment/Plan: No focal abdominal complaints. No significant ascites seen on abd US. Suspect secondary to acute on chronic CHF Will need more information regarding the treatment of the right sided colon cancer that was seen on colonoscopy 2014 CT scan of the abdomen and pelvis with PO contrast MRCP of the abdomen to evaluate prominent CBD when patient can tolerate lying flat Code(s): R14.0 - ABDOMINAL DISTENSION (GASEOUS)
--- NOTE | 2018-01-08 15:05 | PN ---
Progress Note, Physician Chief Complaint: No new complaints History of Present Illness: This is an 87 year old male with a PMH of HTN, systolic CHF, AICD, prostate ca w / questionable mets, T2DM, and a baseline LBBB. He is followed by Dr. Shukla. He presents now with worsening WATSON with orthopnea and cough for 1 - 2 weeks. He is non adherent to his medical regimen. - Current Medication List Current Medications: Active Medications Aspirin (Asa -) 81 mg PO DAILY [facility] Last Admin: 01/08/18 09:10 Dose: 81 mg Folic Acid (Folic Acid -) 1 mg PO DAILY [facility] Last Admin: 01/08/18 09:10 Dose: 1 mg Furosemide (Lasix Injection -) 40 mg IVPUSH BID@0600,1400 [facility] Last Admin: 01/08/18 14:01 Dose: Not Given Heparin Sodium (Porcine) (Heparin -) 5,000 unit SQ BID [facility] Last Admin: 01/08/18 09:10 Dose: 5,000 unit Isosorbide Mononitrate (Imdur -) 60 mg PO DAILY [facility] Last Admin: 01/08/18 09:09 Dose: 60 mg Losartan Potassium (Cozaar -) 100 mg PO DAILY [facility] Last Admin: 01/08/18 09:10 Dose: 100 mg Spironolactone (Aldactone -) 25 mg PO DAILY [facility] Last Admin: 01/08/18 09:10 Dose: 25 mg - Objective Vital Signs: Vital Signs Temperature 98.4 F 01/08/18 14:00 Pulse Rate 93 H 01/08/18 14:00 Respiratory Rate 18 01/08/18 14:00 Blood Pressure 112/54 L 01/08/18 14:00 O2 Sat by Pulse Oximetry (%) 97 01/08/18 09:00 Constitutional: Yes: No Distress Eyes: Yes: WNL, Occular Prosthesis Neck: Yes: WNL Cardiovascular: Yes: Regular Rate and Rhythm (NL S1S2, No MRHG) Respiratory: Yes: Dullness (Bibasilar) Gastrointestinal: Yes: Normal Bowel Sounds Edema: Yes Edema: LLE: 1+, RLE: 1+ Neurological: Yes: Alert, Oriented Labs: CBC, BMP 01/07/18 10:50 01/07/18 05:00 INR, PTT INR 1.15 (0.83-1.09) H 01/06/18 21:55 Assessment/Plan 87 year old male with a PMH of HTN, systolic CHF, AICD, prostate ca w/ questionable mets, T2DM, and a baseline LBBB. He is followed by Dr. Shukla. He presents now with worsening WATSON with orthopnea and cough for 1 - 2 weeks. He is non adherent to his medical regimen. CHF Acute on chronic systolic CHF Continue IV Lasix 40 mg BID - hold for now until K+ is repleted Follow I's/O's/Wt's/Lytes Agree with aldactone 25 mg PO daily Continue Imdur Continue Losartan Minimal troponin elevation, likely demand ischemia, follow trends Would continue beta blockers, but would favor carvedilol 3.125 mg PO BID K+ 3.4, being repleted Will follow with you
[2018-01-08] MEDS: POTASSIUM CHLORIDE ORAL LIQUID 20 MEQ/15 ML PO SCH (16:13)
--- NOTE | 2018-01-08 17:28 | PN ---
Physical Exam: SUBJECTIVE: Patient seen and examined in his room. He reports feeling better and his shortness of breath has improved. He is eager to be discharged to home with his . Denies REYNOSO, dizziness, chest pain, n/v/d. Seen by cardiology and GI OBJECTIVE: Vital Signs Period Temp Pulse Resp BP Sys/Bryant Pulse Ox Last 24 Hr 97.4 F-98.4 F 63-93 18-20 109-143/54-85 97-99 GENERAL: Awake, alert, and fully oriented, in no acute distress, Mongolian speaking, daughter providing translation HEAD: Normal with no signs of trauma. EYES: PERRL, extraocular movements intact, sclera anicteric, conjunctiva clear. No ptosis. ENT: nares patent, oropharynx clear without exudates, moist mucous membranes. NECK: Trachea midline, full range of motion, supple. LUNGS: Breath sounds equal, clear to auscultation bilaterally, no wheezes, no crackles, no accessory muscle use. HEART: Regular rate and rhythm, S1, S2 without murmur, rub or gallop. ABDOMEN: Soft, nontender, nondistended, normoactive bowel sounds, no guarding, no rebound, no hepatosplenomegaly, no masses. EXTREMITIES: +1 pitting edema to b/l LE, 2+ pulses, warm, well-perfused, no edema. NEUROLOGICAL: No facial droop, tongue midline, normal speech, gait not observed. PSYCH: Normal mood, normal affect. SKIN: Warm, dry, normal turgor, no rashes or lesions noted Laboratory Results - last 24 hr 01/07/18 01/08/18 01/08/18 16:53 12:01 16:17 POC Glucometer 122 130 170 Active Medications Generic Name Dose Route Start Last Admin Trade Name Freq PRN Reason Stop Dose Admin Aspirin 81 mg 01/07/18 10:00 01/08/18 09:10 Asa - PO 81 mg DAILY SUDHAKAR Administration Folic Acid 1 mg 01/07/18 10:00 01/08/18 09:10 Folic Acid - PO 1 mg DAILY SUDHAKAR Administration Furosemide 40 mg 01/07/18 07:15 01/08/18 14:01 Lasix Injection - IVPUSH Not Given BID@0600,1400 [facility] Heparin Sodium (Porcine) 5,000 unit 01/07/18 10:00 01/08/18 09:10 Heparin - SQ 5,000 unit BID SUDHAKAR Administration Isosorbide Mononitrate 60 mg 01/07/18 10:00 01/08/18 09:09 Imdur - PO 60 mg DAILY SUDHAKAR Administration Losartan Potassium 100 mg 01/07/18 10:00 01/08/18 09:10 Cozaar - PO 100 mg DAILY SUDHAKAR Administration Potassium Chloride 40 meq 01/08/18 16:00 01/08/18 16:13 Potassium Chloride Oral Liquid PO 01/09/18 16:01 40 meq Q12H SUDHAKAR Administration Spironolactone 25 mg 01/07/18 10:00 01/08/18 09:10 Aldactone - PO 25 mg DAILY SUDHAKAR Administration ASSESSMENT/PLAN: 88 year old man with PMH significant for HTN, Systolic CHF, EF 20%, with baseline LBBB, + Defib, Cardiomyopathy, DM, Prostate Ca ?METs, Dementia. He is followed by Dr. Shukla. He presents now with worsening WATSON with orthopnea and cough for 1 - 2 weeks. Admitted to Telemetry for Acute CHF Exacerbation, Chest Pain r/o ACS or further evaluation of their emergent condition. Acute exacerbation of CHF - Serial Enzymes - 0.21 likely secondary to ischemic demand - CXR: pulm vascular congestion - BNP > 10,000 - Seen by oil deliverer Dr. Brian - Resume Lasix 40 mg IV BID after K has been repleted -K 3.4, given KCL 40 meq PO q12 hrs x 3 - Start carvedilol 3.125 mg PO BID and d/c home Metoprolol per Dr. Brian - ASA 81 mg qday - Imdur 60 mg qday - Continue telemetry monitoring - Strict I&Os - Daily weights - O2 - Monitor CBC, BMP - Followed OP by oil deliverer Dr. Shukla Abdominal distention - Seen by GI specialist Dr. Jack - Suspects secondary to acute on chronic CHF - Abdominal pelvic CT with contrast ordered to r/o obstruction vs malignancy, final read pending - Recommends MRCP of the abdomen to evaluate prominent CBD when patient can tolerate lying flat - Recommends OP f/u for treatment of right-sided colon ca seen on colonoscopy 2014 HTN - stable - Continue home meds with parameters -Losartan 100 mg qday -Aldactone 25 mg qday - Monitor renal function Diabetes mellitus - Hgb A1C 7.5 - Not currently on home medications - BG ACHS - Sliding scale with Novolog - Diabetic diet Prostate CA -Consider Urology consult or f/u in outpatient FEN -Fluid Restriction 1L -Replete Lytes prn -Low Sodium, Diabetic Diet DVT Prophylaxis -TEDs -Heparin SQ Dispo: Requires Inpatient Care Visit type - Emergency Visit Emergency Visit: No - New Patient This patient is new to me today: Yes Date on this admission: 01/08/18 - Critical Care Critical Care patient: No
--- NOTE | 2018-01-08 19:08 | EKG ---
Test Reason : Blood Pressure : / mmHG Vent. Rate : 096 BPM Atrial Rate : 096 BPM P-R Int : 166 ms QRS Dur : 172 ms QT Int : 442 ms P-R-T Axes : 073 -80 099 degrees QTc Int : 558 ms Atrial-sensed ventricular-paced rhythm ABNORMAL ECG WHEN COMPARED WITH ECG OF 06-JAN-2018 20:40, VENT. RATE HAS DECREASED BY 9 BPM Confirmed by THERESE RUFFIN MD ([id number]) on 01/08/2018 7:07:46 PM Referred By: Confirmed By:THERESE RUFFIN MD
--- NOTE | 2018-01-08 19:12 | EKG ---
Test Reason : Blood Pressure : / mmHG Vent. Rate : 105 BPM Atrial Rate : 105 BPM P-R Int : 162 ms QRS Dur : 158 ms QT Int : 400 ms P-R-T Axes : 114 270 082 degrees QTc Int : 528 ms Atrial-sensed ventricular-paced rhythm ABNORMAL ECG WHEN COMPARED WITH ECG OF 18-AUG-2012 00:30, VENT. RATE HAS INCREASED Confirmed by THERESE RUFFIN MD ([id number]) on 01/08/2018 7:11:46 PM Referred By: Confirmed By:THERESE RUFFIN MD
[2018-01-08] MEDS ORDERED: CARVEDILOL 3.125 MG TABLET (FP) PO SCH (22:00)
[2018-01-08] MEDS: INSULIN SLIDING SCALE (NOVOLOG) 1 VIAL SQ SCH (22:17)
[2018-01-09] MEDS: INSULIN SLIDING SCALE (NOVOLOG) 1 VIAL SQ SCH (06:31)
[2018-01-09] MEDS: FUROSEMIDE 40 MG/4 ML INJECTABLE VIAL IVPUSH SCH (06:36)
[2018-01-09] MEDS: POTASSIUM CHLORIDE ORAL LIQUID 20 MEQ/15 ML PO SCH (06:36)
[2018-01-09] MEDS ORDERED: IPRATROPIUM BR 0.02% 0.5 MG/2.5 ML VIAL.NEB. NEB ONE ×2 (06:50→06:52)
[2018-01-09 07:58] LABS: HEMATOCRIT 39.5 % (35.4-49); MCH 29.4 pg (25.7-33.7); MCHC 32.8 g/dl (32.0-35.9); MEAN CELL VOLUME 89.6 fl (80-96); MEAN PLT VOLUME 7.8 fl (7.5-11.1); PLATELET COUNT 222 K/MM3 (134-434); RBC 4.41 M/mm3 (4.00-5.60); RDW 14.8 % (11.9-15.9); WHITE BLOOD COUNT 7.2 K/mm3 (4.0-10.0)
[2018-01-09 08:08] LABS: ALBUMIN 4.1 g/dl (3.4-5.0); ALK PHOS 110 U/L (45-117); ANION GAP 11 MMOL/L (8-16); BILIRUBIN,DIRECT 0.6 mg/dL (0.0-0.2); BILIRUBIN,TOTAL 2.4 mg/dL (0.2-1); BLOOD UREA NITROGEN 26 mg/dL (7-18); CALCIUM 9.1 mg/dL (8.5-10.1); CHLORIDE 97 mmol/L (98-107); CO2 27 mmol/L (21-32); CREATININE 1.1 mg/dL (0.55-1.3); GLUCOSE,RANDOM 114 mg/dL (74-106); POTASSIUM 3.8 mmol/L (3.5-5.1); SGOT/AST 29 U/L (15-37); SGPT/ALT 32 U/L (13-61); SODIUM 135 mmol/L (136-145); TOT PROT 7.6 g/dl (6.4-8.2)
--- NOTE | 2018-01-09 08:43 | PN ---
Progress Note (short form) - Note Progress Note: 88 y.o M with hx of severe CHFdEF, EF <20 %, AICD, prostate CA-no treatment given, stable 3 cm right kidney nodule, colon large tubular adenoma-not comletely resected, gallstones was admited to [facility] with SOB, WATSON, orthopnea, anasarca, Hewas given IV Lasic and Spironolactone was restarted. The patient was non-compliant with oral diuretic therapy at home Vital Signs (72 hours) 01/06/18 01/07/18 01/07/18 20:36 00:37 04:00 Temperature 97.8 F 98.0 F Pulse Rate 104 H Pulse Rate [ 81 90 Apical] Respiratory 24 H 16 19 Rate Blood Pressure 131/85 Blood Pressure 117/78 124/85 [Right Arm] O2 Sat by Pulse 91 L 98 98 Oximetry (%) 01/07/18 01/07/18 01/07/18 07:15 10:20 12:00 Temperature Pulse Rate Pulse Rate [ 80 Apical] Respiratory 18 Rate Blood Pressure Blood Pressure 128/82 [Right Arm] O2 Sat by Pulse 96 98 96 Oximetry (%) 01/07/18 01/07/18 01/07/18 12:09 15:12 17:01 Temperature 97.8 F 97.2 F L 97.8 F Pulse Rate 73 80 66 Pulse Rate [ Apical] Respiratory 22 H 20 20 Rate Blood Pressure 138/80 116/75 135/59 L Blood Pressure [Right Arm] O2 Sat by Pulse Oximetry (%) 01/07/18 01/07/18 01/08/18 20:45 21:00 02:07 Temperature 97.5 F L 97.4 F L Pulse Rate 84 82 Pulse Rate [ Apical] Respiratory 20 18 Rate Blood Pressure 115/84 109/73 Blood Pressure [Right Arm] O2 Sat by Pulse 99 Oximetry (%) 01/08/18 01/08/18 01/08/18 06:00 09:00 10:00 Temperature 97.5 F L 97.7 F Pulse Rate 88 63 Pulse Rate [ Apical] Respiratory 18 18 18 Rate Blood Pressure 143/85 119/71 Blood Pressure [Right Arm] O2 Sat by Pulse 97 Oximetry (%) 01/08/18 01/08/18 01/08/18 14:00 17:23 21:00 Temperature 98.4 F 97.5 F L 97.8 F Pulse Rate 93 H 91 H 84 Pulse Rate [ Apical] Respiratory 18 20 20 Rate Blood Pressure 112/54 L 139/66 155/101 H Blood Pressure [Right Arm] O2 Sat by Pulse Oximetry (%) 01/08/18 01/09/18 01/09/18 22:00 02:00 06:00 Temperature 97.8 F 97.9 F 97.8 F Pulse Rate 84 101 H 107 H Pulse Rate [ Apical] Respiratory 20 18 20 Rate Blood Pressure 155/101 H 159/98 173/107 H Blood Pressure [Right Arm] O2 Sat by Pulse 96 Oximetry (%) Vital Signs Temp 97.8 F 01/09/18 06:00 Pulse 107 H 01/09/18 06:00 Resp 20 01/09/18 06:00 BP 173/107 H 01/09/18 06:00 Pulse Ox 96 01/08/18 22:00 Intake & Output 01/08/18 01/08/18 01/09/18 11:59 23:59 11:59 Intake Total 14 600 Balance 14 600 Weight 163 lb 3 oz Intake: IV 14 SL 14 Oral 600 Other: Voiding Method Toilet Toilet Toilet # Unmeasured Voids Void 2 Bowel Movement No In [facility] IV Lasix was administered BID, Aldactone re-started with improvement of generalized edema. Today comfortable in A/C wants to go home, and daughter at bedside Neck supple, no JVD Lungs are Clear Heart S1S2 regular Palpable AICD left chest Abdomen soft, NT Ext-no CCE Alert, awake, moves all extremities. IMP Current Active Problems Problem Status Onset Abdominal distention Acute Acute exacerbation of CHF (congestive heart failure) Acute Cardiomyopathy Acute Chest pain Acute Dementia Acute Diabetes mellitus Acute HTN (hypertension) Acute Prostate CA Acute Shortness of breath Acute Plan D/C home F/u in the office Continue Lasix/spironolactone F/U lytes. CT abdomen-Pending.
--- NOTE | 2018-01-09 08:46 | DS ---
Physical Examination Vital Signs: Vital Signs Temperature 97.8 F 01/09/18 06:00 Pulse Rate 107 H 01/09/18 06:00 Respiratory Rate 20 01/09/18 06:00 Blood Pressure 173/107 H 01/09/18 06:00 O2 Sat by Pulse Oximetry (%) 96 01/08/18 22:00 Constitutional: Yes: Anxious, Mild Distress Eyes: Yes: Conjunctiva Clear, EOM Intact HENT: Yes: Atraumatic, Normocephalic. No: Drooling Neck: Yes: Supple, Trachea Midline Cardiovascular: Yes: Tachycardia, Murmur, S1, S2. No: JVD, Rub Respiratory: Yes: Regular, CTA Bilaterally Gastrointestinal: Yes: Normal Bowel Sounds, Soft, Abdomen, Obese ...Rectal Exam: Yes: Deferred Renal/: No: Anuria, Bladder Distention Breast(s): Yes: WNL, Other (AICD) Musculoskeletal: Yes: WNL Extremities: No: Amputation, Calf Tenderness, Cold Edema: No Peripheral Pulses WNL: Yes Integumentary: Yes: WNL Neurological: Yes: WNL, Alert, Oriented ...Motor Strength: WNL Psychiatric: Yes: WNL Labs: CBC, BMP 01/09/18 05:45 01/09/18 05:45 Discharge Summary Reason For Visit: ACUTE ON CHRONIC CHR/SOB Current Active Problems Abdominal distention (Acute) Acute exacerbation of CHF (congestive heart failure) (Acute) Cardiomyopathy (Acute) Chest pain (Acute) Dementia (Acute) Diabetes mellitus (Acute) HTN (hypertension) (Acute) Prostate CA (Acute) Shortness of breath (Acute) Condition: Improved - Instructions Referrals: Camilla Perez MD [Staff Physician] - Ze Lloyd MD [Primary Care Provider] - Disposition: HOME - Home Medications Comprehensive Discharge Medication List: Ambulatory Orders Atorvastatin Ca [Lipitor] 1 tab PO DAILY 12/24/13 Ranitidine HCl [Zantac] 150 mg PO DAILY 12/25/13 Aspirin 81 mg PO DAILY 08/23/14 Folic Acid 1 mg PO DAILY 01/06/18 Furosemide [Lasix] 40 mg PO BID 01/06/18 Isosorbide Mononitrate [Isosorbide Mononitrate ER] 60 mg PO BID 01/06/18 Losartan Potassium 100 mg PO DAILY 01/06/18 Metoprolol Tartrate [Lopressor] 100 mg PO DAILY 01/06/18 Spironolactone [Aldactone -] 25 mg PO DAILY 01/06/18 Carvedilol [Coreg -] 3.125 mg PO BID #60 tablet 01/09/18 Potassium Chloride [Potassium Chloride Oral Liquid] 40 meq PO DAILY 30 Days cup 01/09/18
[2018-01-09 09:08] VITALS: BP 128/89; PULSE 96; TEMP 97.6
[2018-01-11 00:07] LABS: HBSAG SCREEN Negative (Negative); HEP A AB, IGM Negative (Negative); HEP B CORE AB, TOT Negative (Negative)
== END 2018-01-09 09:20 | disposition home or self-care (01) | DRG 292 ==
LOC: JER 20:33 → JERBED 23:41 → J4S 01-07 12:05
PROVIDERS: ADMIT Internal Medicine; ATTEND Internal Medicine
DX: I11.0 Hypertensive heart disease with heart failure (principal); I24.8 Other forms of acute ischemic heart disease; I50.23 Acute on chronic systolic (congestive) heart failure; C61 Malignant neoplasm of prostate; I44.7 Left bundle-branch block, unspecified; I42.9 Cardiomyopathy, unspecified; E11.9 Type 2 diabetes mellitus without complications; E78.5 Hyperlipidemia, unspecified; F03.90 Unspecified dementia, unspecified severity, without behavioral disturbance, psychotic disturbance, mood disturbance, and anxiety; Z91.14 Patient's other noncompliance with medication regimen; R14.0 Abdominal distension (gaseous); Z95.810 Presence of automatic (implantable) cardiac defibrillator; N28.89 Other specified disorders of kidney and ureter
CPT/HCPCS: 36415; 71045-TC-FY; 74176-TC; 76700-TC; 80048; 80053; 80061; 80076; 81003; 82550; 82553; 82962; 83036; 83721; 83735; 83880; 84100; 84484; 85025; 85027; 85610; 86704; 86706; 86708; 86803; 87086; 87340; 93005; 93010; 94640; 99285-25; J1644; Q9967

== ENCOUNTER 2019-02-26 17:18 | Inpatient (IN) | payer OTHER ==
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
[2019-02-26 19:57] LABS: BASO % 0.6 % (0-2.0); EOS % 0.5 % (0-4.5); HEMATOCRIT 36.1 % (35.4-49); LYMPH % 12.5 % (8-40); MCH 30.2 pg (25.7-33.7); MCHC 33.4 g/dl (32.0-35.9); MEAN CELL VOLUME 90.5 fl (80-96); MEAN PLT VOLUME 8.1 fl (7.5-11.1); MONO % 8.4 % (3.8-10.2); PLATELET COUNT 227 K/MM3 (134-434); RBC 3.99 M/mm3 (4.00-5.60); RDW 14.6 % (11.9-15.9); WHITE BLOOD COUNT 9.8 K/mm3 (4.0-10.0)
[2019-02-26 20:30] LABS: ALBUMIN 4.3 g/dl (3.4-5.0); BILIRUBIN,TOTAL 1.1 mg/dL (0.2-1); CALCIUM 9.8 mg/dL (8.5-10.1); CREATININE 1.3 mg/dL (0.55-1.3); MAGNESIUM 2.1 mg/dL (1.8-2.4); PHOSPHOROUS 3.4 mg/dL (2.5-4.9); POTASSIUM 4.9 mmol/L (3.5-5.1); TOT PROT 7.8 g/dl (6.4-8.2)
--- NOTE | 2019-02-26 21:02 | PDOC ---
Documentation entered by Amy Mena SCRIBE, acting as scribe for Gladys Plascencia MD. Gladys Plascencia MD: This documentation has been prepared by the Trina del toro Nirvannie, SCRIBE, under my direction and personally reviewed by me in its entirety. I confirm that the documentation accurately reflects all work, treatment, procedures, and medical decision making performed by me. Attending Attestation - Resident Resident Name: Caesar Braun - ED Attending Attestation I have performed the following: I have examined & evaluated the patient, The case was reviewed & discussed with the resident, I agree w/resident's findings & plan, Exceptions are as noted - HPI HPI: 02/26/19 18:51 89 yo m h/o chf, pacemaker, htn, dementia here with acute worsening confusion. states he has been progressively more confused for the last year but over the last few days has been more disoriented. has been unabel to recognize his wifes face, often thinks there is an imposter in the house. no f/c no n/v no falls. no focal weakness or change to speech. no other problems. saw dr. osborne today who recommend he come to ED. meds: imdur toprol lasix eliquis losartan - Physicial Exam PE: 02/26/19 18:54 awake alert lungs clear heart rrr no mrg abd soft nt nd ext wwp. no edema. no calf tenderness. awake alert oriented x 1 ( knows name, defers to other for location and date) . 5/5 all four ext. speech clear. CN II _ XII intact. 02/26/19 21:00 - Medical Decision Making 02/26/19 20:57 89 yo male h/o dementia, htn, hld, CHF, aicd/ pacer here wiht worsening confusion, thought was an intruder. per chart review pt has h/o prostate and colon CA which was left untreated. pt sees dr albright who wanted to be admitted for delirium, dementia. on my exam pt nuerologically intact. differential infection, delierium on dementia, worsening dementia, uti pna, eletrolyte abnormality, plan labs cxr ekg ct head ct head old infarct nothing acute. labs positive but h/o positive trop. no chest pain. d/w dr albright would like admitted to hospitalist and he will see tomorrow. 02/26/19 21:00 02/26/19 21:01 Heart Score/ECG Review #1 General ECG Interpretation: Normal Rate (70), Normal Intervals, No acute ischemic changes Compared to previous ECG there are: Other (paced, left acis. TWI I AVL, V1 - V2 left axis)
[2019-02-26] MEDS ORDERED: ASPIRIN 81 MG CHEWABLE TABLETS PO ONE (21:09)
[2019-02-26] MEDS ORDERED: SODIUM CHLORIDE 0.9% 500 ML INFUS.BAG IV ONE (21:32)
[2019-02-26] MEDS ORDERED: ASPIRIN 81 MG CHEWABLE TABLETS ONE (21:33)
[2019-02-26 21:56] LABS: URINE APPEARANCE CLEAR; URINE BILIRUBIN NEGATIVE (NEGATIVE); URINE COLOR YELLOW; URINE GLUCOSE (UA) NEGATIVE (NEGATIVE); URINE KETONE NEGATIVE (NEGATIVE); URINE LEUK ESTERASE NEGATIVE (NEGATIVE); URINE NITRITE NEGATIVE (NEGATIVE); URINE PROTEIN TRACE (NEGATIVE); URINE UROBILINOGEN 0.2 mg/dL (0.2-1.0)
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
[2019-02-26] MEDS ORDERED: ACETAMINOPHEN 325 MG TABLET (FP) PO PRN (23:09)
[2019-02-26] MEDS ORDERED: LORazepam 2 MG/ML SDV VIAL ONE (23:24)
[2019-02-27] MEDS ORDERED: FUROSEMIDE 40 MG TABLET (FP) ONE (06:22)
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
[2019-02-27] MEDS: FUROSEMIDE 40 MG TABLET (FP) PO SCH ×2 (06:25→13:22)
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
[2019-02-27 07:52] LABS: BLOOD UREA NITROGEN 20.3 mg/dL (7-18); CALCIUM 9.3 mg/dL (8.5-10.1); CREATININE 1.3 mg/dL (0.55-1.3); POTASSIUM 4.1 mmol/L (3.5-5.1)
[2019-02-27 08:00] LABS: MCHC 33.3 g/dl (32.0-35.9); MEAN CELL VOLUME 89.8 fl (80-96); MEAN PLT VOLUME 7.6 fl (7.5-11.1); PLATELET COUNT 201 K/MM3 (134-434); RBC 3.67 M/mm3 (4.00-5.60); RDW 14.2 % (11.9-15.9); WHITE BLOOD COUNT 6.4 K/mm3 (4.0-10.0)
[2019-02-27] MEDS ORDERED: ASPIRIN 81 MG CHEWABLE TABLETS ONE (09:00)
[2019-02-27] MEDS ORDERED: clonazePAM 0.5 MG TABLET ONE (09:00)
[2019-02-27] MEDS ORDERED: HEPARIN NA (PORCINE) 5,000 UNITS/ML 1ML VIAL ONE (09:01)
[2019-02-27] MEDS: METOPROLOL TARTRATE 50 MG TABLET (FP) PO SCH ×2 (09:13→22:14)
[2019-02-27] MEDS: ISOSORBIDE MONONITRATE 60 MG TAB.SR.24H (FP) PO SCH (09:13)
[2019-02-27] MEDS: ESCITALOPRAM OXALATE 10 MG TABLET (FP) PO SCH (09:13)
[2019-02-27] MEDS: HEPARIN NA (PORCINE) 5,000 UNITS/ML 1ML VIAL SQ SCH ×2 (09:13→22:14)
[2019-02-27] MEDS: CARVEDILOL 3.125 MG TABLET (FP) PO SCH ×2 (09:13→22:14)
[2019-02-27] MEDS: SPIRONOLACTONE 25 MG TABLET (FP) PO SCH (09:13)
[2019-02-27] MEDS: ASPIRIN 81 MG CHEWABLE TABLETS PO SCH (09:13)
[2019-02-27] MEDS: clonazePAM 0.5 MG TABLET PO SCH ×2 (09:13→22:14)
[2019-02-27] MEDS: POLYETHYLENE GLYCOL 3350 119 GM BTL PO SCH ×2 (09:14→22:16)
[2019-02-27] MEDS: FAMOTIDINE 20 MG TABLET PO SCH (09:14)
[2019-02-27] MEDS ORDERED: PATIENT'S OWN MEDICATION (NON-FORMULARY) (Ranitidine Hcl [Zantac] 150 MG) PO SCH (10:00)
[2019-02-27] MEDS ORDERED: METOPROLOL TARTRATE 50 MG TABLET (FP) PO SCH (10:00)
[2019-02-27] MEDS ORDERED: LOSARTAN POTASSIUM 50 MG TABLET (FP) PO SCH (10:00)
[2019-02-27] MEDS ORDERED: POTASSIUM CHLORIDE ORAL LIQUID 20 MEQ/15 ML PO SCH (10:00)
[2019-02-27] MEDS ORDERED: PATIENT'S OWN MEDICATION (NON-FORMULARY) (Metoprolol Tartrate [Lopressor] 100 MG) PO SCH (10:00)
--- NOTE | 2019-02-27 10:25 | EKG ---
Test Reason : Blood Pressure : / mmHG Vent. Rate : 070 BPM Atrial Rate : 256 BPM P-R Int : 000 ms QRS Dur : 174 ms QT Int : 458 ms P-R-T Axes : 063 -82 101 degrees QTc Int : 494 ms Ventricular-paced rhythm ABNORMAL ECG WHEN COMPARED WITH ECG OF 07-JAN-2018 08:29, VENT. RATE HAS DECREASED BY 26 BPM Confirmed by MD Zahra, Dario ([id number]) on 02/27/2019 10:25:28 AM Referred By: Confirmed By:Dario Sweeney MD
[2019-02-27 15:52] VITALS: BMI 25.6
--- NOTE | 2019-02-27 18:20 | CON.PSY ---
Psychiatry Consult Chief Complaint: 89 jazmin old male seen for anxirty and ? aggressive [id number] toward his wife4. Case discussed with staff and patients . reports of ? Dementia. apperas calmer and [id number] sedated this pm. On Klonapin and Lexapro. - Previous Psychiatric Treatment Outpatient: Less than 6 mos ago Inpatient: None - Previous Substance Abuse Treatment Outpatient: None Inpatient: None - Reason for Previous Treatment Reason for Previous Treatment: Anxiety or Panic Disorder - Current Medications Current Medications: Active Medications Acetaminophen (Tylenol -) 650 mg PO Q6H PRN PRN Reason: PAIN LEVEL 1-5 Aspirin (Asa -) 81 mg PO DAILY [facility] Last Admin: 02/27/19 09:13 Dose: 81 mg Atorvastatin Calcium (Lipitor -) 80 mg PO [facility] Carvedilol (Coreg -) 3.125 mg PO BID [facility] Last Admin: 02/27/19 09:13 Dose: 3.125 mg Clonazepam (Klonopin -) 0.5 mg PO BID [facility] Last Admin: 02/27/19 09:13 Dose: 0.5 mg Escitalopram Oxalate (Lexapro -) 5 mg PO DAILY [facility] Last Admin: 02/27/19 09:13 Dose: 5 mg Famotidine (Pepcid -) 20 mg PO DAILY [facility] Last Admin: 02/27/19 09:14 Dose: 20 mg Furosemide (Lasix -) 40 mg PO BIDLASIX [facility] Last Admin: 02/27/19 13:22 Dose: 40 mg Heparin Sodium (Porcine) (Heparin -) 5,000 unit SQ BID [facility] Last Admin: 02/27/19 09:13 Dose: 5,000 unit Isosorbide Mononitrate (Imdur -) 120 mg PO DAILY [facility] Last Admin: 02/27/19 09:13 Dose: 120 mg Losartan Potassium (Cozaar -) 100 mg PO DAILY [facility] Last Admin: 02/27/19 09:13 Dose: 100 mg Metoprolol Tartrate (Lopressor -) 50 mg PO BID [facility] Last Admin: 02/27/19 09:13 Dose: 50 mg Polyethylene Glycol (Miralax (For Daily Use) -) 17 gm PO BID [facility] Last Admin: 02/27/19 09:14 Dose: 119 grams Spironolactone (Aldactone -) 25 mg PO DAILY [facility] Last Admin: 02/27/19 09:13 Dose: 25 mg - Allergies Allergies: Allergies Allergy/AdvReac Type Severity Reaction Status Date / Time No Known Drug Allergies Allergy Verified 02/26/19 19:23 - Current Living Status Usual Living Arrangement: With Spouse - Current Mental Status Evaluation Appearance: Disheveled Attitude: Guarded - Affect Affect: Constrictive Appropriateness: Not Appropriate - Mood Mood: Irritable - Speech/Language Expressive: Delayed - Psychomotor Activity Psychomotor Activity: Slowed - Thought Process Thought Process: Circumstantial - Thought Content Hallucinations: Absent Delusions: Absent - Self Perception Self Perception: Depersonalization - Cognition Attention: Diminished Memory, Short Term: 2/3 - Concentration Serial Sevens Intact: No Simple Calculations Intact: No - Abstraction Proverb Interpretation: Impaired Judgement: Minimally Impaired - Insight Insight: Impaired - Impulse Control Impulse Control: Moderately Impaired - Suicidal Ideation Suicidal Ideation: No - Homicidal Ideation Homicidal Ideation: No Assessment/Plan 1) Continue with [facility] meds.
[2019-02-27] MEDS: ATORVASTATIN CA 40 MG TABLET (FP) PO SCH (22:14)
[2019-02-28] MEDS: FUROSEMIDE 40 MG TABLET (FP) PO SCH ×2 (05:56→13:06)
--- NOTE | 2019-02-28 06:34 | CON.CARD ---
Consult Consult Specialty:: cardiology Reason for Consultation:: hx systolic CHF - History of Present Illness History of Present Illness: 89 yo man (isaias Lux) with h/o systolic chf-->ICD 2016, htn, colon CA, prostate CA, dementia, now presents with acute worsening of confusion. His daughter and are present, and state he has been progressively more confused for the last year, but over the last few days has been more disoriented. He has been unable to recognize his 's face, and often thinks she is an imposter in the house and is aggressive towards her. no f/c no n/v no falls. no focal weakness or change to speech. no other problems. saw Dr. osborne today, who recommended he come to ED. meds: imdur toprol lasix eliquis losartan Stress MIBI ?2014: no ischemia - History Source History Provided By: Patient, Family Member ( and daughter are present), Medical Record Limitations to Obtaining History: Dementia - Past Medical History [employer]: Yes: Dementia (?) Cardio/Vascular: Yes: AFIB (with AICD, PPM), CAD, CHF (EF 20% per the chart), HTN, Hyperlipdemia Gastrointestinal: Yes: Cancer (Ascnding colon cancer 11/12), GERD Hepatobiliary: Yes: Cholelithiasis Renal/: Yes: Cancer (prostate cancer followed by Dr. Cash) - Past Surgical History Past Surgical History: Yes: AICD Additional Surgical History: ICD - Alcohol/Substance Use Hx Alcohol Use: Yes (socially in past) History of Substance Use: reports: None - Smoking History Smoking history: Never smoked Have you smoked in the past 12 months: No Aproximately how many cigarettes per day: 0 If you are a former smoker, when did you quit?: 25 years ago - Social History Usual Living Arrangement: With Spouse ADL: Independent History of Recent Travel: No Home Medications - Allergies Allergies/Adverse Reactions: Allergies Allergy/AdvReac Type Severity Reaction Status Date / Time No Known Drug Allergies Allergy Verified 02/26/19 19:23 - Home Medications Home Medications: Ambulatory Orders Atorvastatin Ca [Lipitor] 1 tab PO DAILY 12/24/13 Ranitidine HCl [Zantac] 150 mg PO DAILY 12/25/13 Aspirin 81 mg PO DAILY 08/23/14 Folic Acid 1 mg PO DAILY 01/06/18 Furosemide [Lasix] 40 mg PO BID 01/06/18 Isosorbide Mononitrate [Isosorbide Mononitrate ER] 60 mg PO BID 01/06/18 Losartan Potassium 100 mg PO DAILY 01/06/18 Metoprolol Tartrate [Lopressor] 100 mg PO DAILY 01/06/18 Spironolactone [Aldactone -] 25 mg PO DAILY 01/06/18 Carvedilol [Coreg -] 3.125 mg PO BID #60 tablet 01/09/18 Potassium Chloride [Potassium Chloride Oral Liquid] 40 meq PO DAILY 30 Days cup 01/09/18 Family Medical History Family History: Denies Review of Systems - Review of Systems Constitutional: reports: Weakness, Other (confusion; dementia) Eyes: reports: No Symptoms HENT: reports: No Symptoms Neck: reports: No Symptoms Cardiovascular: reports: No Symptoms Respiratory: reports: No Symptoms Gastrointestinal: reports: No Symptoms Genitourinary: reports: No Symptoms Breasts: reports: No Symptoms Reported Musculoskeletal: reports: Muscle Weakness Integumentary: reports: No Symptoms Neurological: reports: No Symptoms Endocrine: reports: No Symptoms Hematology/Lymphatic: reports: No Symptoms Psychiatric: reports: Other (demantia) - Risk Factors Known Risk Factors: Yes: Age, Diabetes Mellitus, Gender, Hypercholesterolemia, Hypertension, Physical Inactivity, Other (severe systolic CHF) Vital Signs: Vital Signs Temperature 97.6 F 02/28/19 05:42 Pulse Rate 70 02/28/19 05:42 Respiratory Rate 20 02/28/19 05:42 Blood Pressure 118/69 02/28/19 05:42 O2 Sat by Pulse Oximetry (%) 96 02/27/19 21:00 Constitutional: Yes: Calm Eyes: Yes: WNL HENT: Yes: WNL Neck: Yes: WNL Respiratory: Yes: WNL Gastrointestinal: Yes: WNL Renal/: No: Anuria Cardiovascular: Yes: Regular Rate and Rhythm JVD: No Carotid Bruit: No PMI: Displaced Heart Sounds: Yes: S1, S2 Murmur: Yes: Systolic Murmur, Grade 2 Musculoskeletal: Yes: Muscle Weakness Extremities: Yes: WNL Edema: No Peripheral Pulses WNL: Yes Integumentary: Yes: WNL Neurological: Yes: Alert, Weakness, Other Psychiatric: Yes: Other - Other Data Labs, Other Data: CBC, BMP 02/27/19 07:40 02/27/19 02:28 Troponin, BNP 02/27/19 02/27/19 02:28 07:40 Troponin I 0.63 H* 0.45 H Troponin, BNP 02/27/19 02/27/19 02:28 07:40 Troponin I 0.63 H* 0.45 H Abnormal Lab Results 02/27/19 02/27/19 02/27/19 02:28 07:40 07:40 RBC 3.67 L Hgb 11.0 L Hct 33.0 L Sodium 133 L BUN 20.3 H Random Glucose 123 H Troponin I 0.63 H* 0.45 H HDL Cholesterol 67 H Prior Cardiac Procedures: Other (ICD) Ejection Fraction %: LVEF < 40 % Imaging - Results Chest X-ray: Image Reviewed EKG: Image Reviewed (ventricular paced rhythm) Problem List - Problems (1) Systolic CHF Assessment/Plan: On metoprolol, losaratn, spironolactone, furosemide. F/u BUN/Cr, electrolytes, Is and Os, daily weight. Discussed pt with his santa's helper, Dr. Brendan Adame. Code(s): I50.20 - UNSPECIFIED SYSTOLIC (CONGESTIVE) HEART FAILURE (2) Diabetes mellitus Code(s): E11.9 - TYPE 2 DIABETES MELLITUS WITHOUT COMPLICATIONS Qualifiers: Diabetes mellitus type: type 2 Diabetes mellitus complication status: without complication (3) Colon cancer Code(s): C18.9 - MALIGNANT NEOPLASM OF COLON, UNSPECIFIED (4) HLD (hyperlipidemia) Assessment/Plan: Total cholesterol 132 mg/dL; on statin. Code(s): E78.5 - HYPERLIPIDEMIA, UNSPECIFIED (5) Dementia Assessment/Plan: f/u with psychiatrist. Code(s): F03.90 - UNSPECIFIED DEMENTIA WITHOUT BEHAVIORAL DISTURBANCE Qualifiers: Dementia type: unspecified type Dementia behavioral disturbance: with behavioral disturbance Qualified Code(s): F03.91 - Unspecified dementia with behavioral disturbance (6) Prostate CA Code(s): C61 - MALIGNANT NEOPLASM OF PROSTATE (7) Troponin level elevated Assessment/Plan: 0.63-->0.45 EKG: ventricular paced-rhythm. Hx severely reduced LVEF; some congestive changes on CXR. Discussed findings with pt's santa's helper at [facility] most recent stress MIBI negative for ischemia; lab records being checked. Recommend conservative therapy, given pt's hx of CA, dementia. Code(s): R79.89 - OTHER SPECIFIED ABNORMAL FINDINGS OF BLOOD CHEMISTRY
[2019-02-28 06:48] LABS: BASO % 0.8 % (0-2.0); EOS % 4.6 % (0-4.5); HEMATOCRIT 30.9 % (35.4-49); HEMOGLOBIN 10.4 GM/dL (11.7-16.9); LYMPH % 21.5 % (8-40); MCH 29.8 pg (25.7-33.7); MCHC 33.7 g/dl (32.0-35.9); MEAN CELL VOLUME 88.5 fl (80-96); MEAN PLT VOLUME 7.8 fl (7.5-11.1); MONO % 10.6 % (3.8-10.2); NEUT % 62.5 % (42.8-82.8); PLATELET COUNT 192 K/MM3 (134-434); RBC 3.49 M/mm3 (4.00-5.60); RDW 14.3 % (11.9-15.9); WHITE BLOOD COUNT 6.1 K/mm3 (4.0-10.0)
[2019-02-28 07:51] LABS: ALBUMIN 3.3 g/dl (3.4-5.0); BILIRUBIN,TOTAL 1.5 mg/dL (0.2-1); BLOOD UREA NITROGEN 22.8 mg/dL (7-18); CALCIUM 8.8 mg/dL (8.5-10.1); CREATININE 1.2 mg/dL (0.55-1.3); POTASSIUM 4.5 mmol/L (3.5-5.1); TOT PROT 6.2 g/dl (6.4-8.2)
--- NOTE | 2019-02-28 08:50 | PN ---
Progress Note, Physician Chief Complaint: C/o severe generalized weakness, at the bedside. Developing hyponatremia noted-in elederly patient on Furosemide, Spironolactone , Losartan and Lexapro. Previouslu ARB had to be d/c due to hyponatremia. Cardiology and psychiatry consults appreciated. History of Present Illness: chronic CHFdEF CHRONIC Systolic CHF, EF<30%, LBBB. AICD in situ. COPD. Pulmonary congestion controlled on diurrhetics. Invasive adeno CA ascending colon-surgery not performed as per pt decision RUL 1.[address] 05/15 CT scan chest/abdomen/pelvis 04/24/14- 2 cm primary neoplastic lesion in right renal low pole. Prostate CA-Refused treatment. .Cholelithiasis. Mild CBD dilatation. Chronic calcific pancreatitis. Previous Persistent epigastric pain -ST. LBBB. 1 degree AVB. Moderate-Severe LV systolic dysfunction. EF 20-30%. EST negative in [place]-11/26/13. Prostate adenocarcinoma. Diabetes, controlled on meds. Hypertension, controlled. Hyperlipidemia, controlled. ASHD. B/L shoulder pain. DDD c-spine. (250.00) Type 2 diabetes (577.8) Calcific chronic pancreatitis (574.20) Cholelithiasis without obstruction (593.9) Renal mass (426.3) Left bundle branch block (239.5) Neoplasm of prostate (530.11) Reflux esophagitis (386.19) Other peripheral vertigo (414.0) Coronary atherosclerosis (272.4) Other and unspecified hyperlipidemia (401.9) Unspecified essential hypertension (153.9) Primary cancer of colon REYNOSO, DIZZINESS . LEFT CEREBELLAR INFARCT. Unspecified essential hypertension Other and unspecified hyperlipidemia Coronary atherosclerosis Other peripheral vertigo Reflux esophagitis Neoplasm of prostate- not treated with PSA 60 range Left bundle branch block Renal mass Cholelithiasis without obstruction Calcific chronic pancreatitis (C18.9) Malignant neoplasm of colon, unspecified (E11.9) Type 2 diabetes mellitus without complications (I50.20) Unspecified systolic (congestive) heart failure, EF in 20 range (Z95.810) Presence of automatic (implantable) cardiac defibrillator Undefined (R05) Cough (R91.1) Solitary pulmonary nodule - Current Medication List Current Medications: Active Medications Acetaminophen (Tylenol -) 650 mg PO Q6H PRN PRN Reason: PAIN LEVEL 1-5 Aspirin (Asa -) 81 mg PO DAILY [facility] Last Admin: 02/27/19 09:13 Dose: 81 mg Atorvastatin Calcium (Lipitor -) 80 mg PO HS [facility] Last Admin: 02/27/19 22:14 Dose: 80 mg Carvedilol (Coreg -) 3.125 mg PO BID [facility] Last Admin: 02/27/19 22:14 Dose: 3.125 mg Clonazepam (Klonopin -) 0.5 mg PO BID [facility] Last Admin: 02/27/19 22:14 Dose: 0.5 mg Escitalopram Oxalate (Lexapro -) 5 mg PO DAILY [facility] Last Admin: 02/27/19 09:13 Dose: 5 mg Famotidine (Pepcid -) 20 mg PO DAILY [facility] Last Admin: 02/27/19 09:14 Dose: 20 mg Furosemide (Lasix -) 40 mg PO BIDLASIX [facility] Last Admin: 02/28/19 05:56 Dose: 40 mg Heparin Sodium (Porcine) (Heparin -) 5,000 unit SQ BID [facility] Last Admin: 02/27/19 22:14 Dose: 5,000 unit Isosorbide Mononitrate (Imdur -) 120 mg PO DAILY [facility] Last Admin: 02/27/19 09:13 Dose: 120 mg Metoprolol Tartrate (Lopressor -) 50 mg PO BID [facility] Last Admin: 02/27/19 22:14 Dose: 50 mg Polyethylene Glycol (Miralax (For Daily Use) -) 17 gm PO BID [facility] Last Admin: 02/27/19 22:16 Dose: 17 grams Spironolactone (Aldactone -) 25 mg PO DAILY [facility] Last Admin: 02/27/19 09:13 Dose: 25 mg - Objective Vital Signs: Vital Signs Temperature 97.6 F 02/28/19 05:42 Pulse Rate 70 02/28/19 05:42 Respiratory Rate 20 02/28/19 05:42 Blood Pressure 118/69 02/28/19 05:42 O2 Sat by Pulse Oximetry (%) 96 02/27/19 21:00 Constitutional: Yes: No Distress, Calm, Pallor Eyes: Yes: Conjunctiva Clear, EOM Intact HENT: Yes: Atraumatic, Normocephalic Neck: Yes: Supple, Trachea Midline Cardiovascular: Yes: Regular Rate and Rhythm, S1, S2, Other (AICD) Respiratory: Yes: Regular, CTA Bilaterally Gastrointestinal: Yes: Normal Bowel Sounds, Soft. No: Abdomen, Obese, Ascites ...Rectal Exam: Yes: Deferred Genitourinary: No: Anuria, Bladder Distention, CVA Tenderness - Left, CVA Tenderness - Right Breast(s): Yes: WNL Musculoskeletal: Yes: Muscle Weakness (Generalized) Extremities: No: Calf Tenderness, Cold, Cyanosis, Internal Rotation Edema: No Peripheral Pulses WNL: No Integumentary: Yes: WNL Neurological: Yes: Alert, Confusion, Unsteady Gait, Weakness (generalized). No : Oriented, Aphasia, Dysarthria, Seizure, Unresponsive Psychiatric: Yes: Alert. No: Oriented, Agitated, Suicidal Ideation Labs: CBC, BMP 02/28/19 06:12 02/28/19 06:12 Current Active Problems Problem Status Onset CHF (congestive heart failure) Acute Colon cancer Acute Dehydration Acute Delirium due to conditions classified elsewhere Acute GERD (gastroesophageal reflux disease) Acute HLD (hyperlipidemia) Acute Systolic CHF Acute Troponin level elevated Acute Laboratory Results - last 24 hr 02/27/19 02/27/19 02/28/19 18:27 22:29 05:34 WBC RBC Hgb Hct MCV MCH MCHC RDW Plt Count MPV Absolute Neuts (auto) Neutrophils % Lymphocytes % Monocytes % Eosinophils % Basophils % Nucleated RBC % Sodium Potassium Chloride Carbon Dioxide Anion Gap BUN Creatinine Est GFR (CKD-EPI)AfAm Est GFR (CKD-EPI)NonAf POC Glucometer 194 121 109 Random Glucose Calcium Total Bilirubin AST ALT Alkaline Phosphatase Total Protein Albumin 02/28/19 02/28/19 06:12 06:12 WBC 6.1 RBC 3.49 L Hgb 10.4 L Hct 30.9 L MCV 88.5 MCH 29.8 MCHC 33.7 RDW 14.3 Plt Count 192 MPV 7.8 Absolute Neuts (auto) 3.8 Neutrophils % 62.5 Lymphocytes % 21.5 D Monocytes % 10.6 H Eosinophils % 4.6 H D Basophils % 0.8 Nucleated RBC % 0 Sodium 131 L Potassium 4.5 Chloride 101 Carbon Dioxide 22 Anion Gap 7 L BUN 22.8 H Creatinine 1.2 Est GFR (CKD-EPI)AfAm 62.20 Est GFR (CKD-EPI)NonAf 53.67 POC Glucometer Random Glucose 109 H Calcium 8.8 Total Bilirubin 1.5 H AST 21 ALT 15 Alkaline Phosphatase 68 Total Protein 6.2 L Albumin 3.3 L Problem List - Problems (1) CHF (congestive heart failure) Assessment/Plan: Continue Lasix, Toprol, ASA, Spironolactone, Follow LYTES, BUN/CREAT. Cardiology f/u PRN, patient was regularly followed by Dr Adame at [facility]. Code(s): I50.9 - HEART FAILURE, UNSPECIFIED Qualifiers: Heart failure type: systolic Heart failure chronicity: chronic Qualified Code(s): I50.22 - Chronic systolic (congestive) heart failure (2) Delirium due to conditions classified elsewhere Assessment/Plan: director of physiotherapy services f/u discussed Code(s): F05 - DELIRIUM DUE TO KNOWN PHYSIOLOGICAL CONDITION (3) Troponin level elevated Assessment/Plan: Follow Troponin I-improving now. Code(s): R79.89 - OTHER SPECIFIED ABNORMAL FINDINGS OF BLOOD CHEMISTRY (4) Dementia Assessment/Plan: Psych consult -advised to continue current meds. Clonazepam BID for Anxiety. Lexapro for Depression. Code(s): F03.90 - UNSPECIFIED DEMENTIA WITHOUT BEHAVIORAL DISTURBANCE Qualifiers: Dementia type: unspecified type Dementia behavioral disturbance: with behavioral disturbance Qualified Code(s): F03.91 - Unspecified dementia with behavioral disturbance (5) Diabetes mellitus Assessment/Plan: Follow BG Code(s): E11.9 - TYPE 2 DIABETES MELLITUS WITHOUT COMPLICATIONS Qualifiers: Diabetes mellitus type: type 2 Diabetes mellitus complication status: without complication (6) Generalized muscle weakness Assessment/Plan: Physical therapy ordered. Problems reviewed: Yes Code(s): M62.81 - MUSCLE WEAKNESS (GENERALIZED) (7) Acute hyponatremia Assessment/Plan: D/c Losartan. F/u BMP in AM. 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 Will avoid electrolyte imbalance, hypotension, PT for ambulation. Problems reviewed: Yes Code(s): R42 - DIZZINESS AND GIDDINESS
[2019-02-28] MEDS: HEPARIN NA (PORCINE) 5,000 UNITS/ML 1ML VIAL SQ SCH ×2 (09:36→22:13)
[2019-02-28] MEDS: ISOSORBIDE MONONITRATE 60 MG TAB.SR.24H (FP) PO SCH (09:36)
[2019-02-28] MEDS: clonazePAM 0.5 MG TABLET PO SCH ×2 (09:36→22:01)
[2019-02-28] MEDS: ESCITALOPRAM OXALATE 10 MG TABLET (FP) PO SCH (09:36)
[2019-02-28] MEDS: CARVEDILOL 3.125 MG TABLET (FP) PO SCH (09:37)
[2019-02-28] MEDS: METOPROLOL TARTRATE 50 MG TABLET (FP) PO SCH (09:37)
[2019-02-28] MEDS: ASPIRIN 81 MG CHEWABLE TABLETS PO SCH (09:37)
[2019-02-28] MEDS: FAMOTIDINE 20 MG TABLET PO SCH (09:37)
[2019-02-28] MEDS: SPIRONOLACTONE 25 MG TABLET (FP) PO SCH (09:37)
[2019-02-28] MEDS: POLYETHYLENE GLYCOL 3350 119 GM BTL PO SCH ×2 (09:38→22:14)
[2019-02-28] MEDS ORDERED: LORazepam 2 MG/ML SDV VIAL IM ONE (11:30)
--- NOTE | 2019-02-28 15:43 | PN ---
Progress Note (short form) - Note Progress Note: Coverage for Dr. Inna Lal Chief Complaint: Events noted, notes reviewed, patient in bed in restraints ( [place]), confused and disoriented and on occasions agitated, does not appear to be in any distress, family member at the bedside/daughter History of Present Illness: Seen and examined on telemetry. Events noted, notes reviewed, patient in bed in restraints ([place]), confused and disoriented and on occasions agitated, does not appear to be in any distress, family member at the bedside/daughter - Current Medication List Current Medications Acetaminophen (Tylenol -) 650 mg PO Q6H PRN PRN Reason: PAIN LEVEL 1-5 Aspirin (Asa -) 81 mg PO DAILY [facility] Last Admin: 02/28/19 09:37 Dose: 81 mg Atorvastatin Calcium (Lipitor -) 80 mg PO HS [facility] Last Admin: 02/27/19 22:14 Dose: 80 mg Carvedilol (Coreg -) 3.125 mg PO BID [facility] Last Admin: 02/28/19 09:37 Dose: 3.125 mg Clonazepam (Klonopin -) 0.5 mg PO BID [facility] Last Admin: 02/28/19 09:36 Dose: 0.5 mg Escitalopram Oxalate (Lexapro -) 5 mg PO DAILY [facility] Last Admin: 02/28/19 09:36 Dose: 5 mg Famotidine (Pepcid -) 20 mg PO DAILY [facility] Last Admin: 02/28/19 09:37 Dose: 20 mg Furosemide (Lasix -) 40 mg PO BIDLASIX [facility] Last Admin: 02/28/19 13:06 Dose: 40 mg Heparin Sodium (Porcine) (Heparin -) 5,000 unit SQ BID [facility] Last Admin: 02/28/19 09:36 Dose: 5,000 unit Isosorbide Mononitrate (Imdur -) 120 mg PO DAILY [facility] Last Admin: 02/28/19 09:36 Dose: 120 mg Metoprolol Tartrate (Lopressor -) 50 mg PO BID [facility] Last Admin: 02/28/19 09:37 Dose: 50 mg Polyethylene Glycol (Miralax (For Daily Use) -) 17 gm PO BID [facility] Last Admin: 02/28/19 09:38 Dose: 17 grams Spironolactone (Aldactone -) 25 mg PO DAILY [facility] Last Admin: 02/28/19 09:37 Dose: 25 mg Review of Systems Unable to obtain/Confusion and disorientation - Objective Vital Signs: Last Vital Signs Temp Pulse Resp BP Pulse Ox 97.5 F L 70 20 100/55 L 96 02/28/19 09:07 02/28/19 09:07 02/28/19 09:07 02/28/19 09:07 02/28/19 09:00 Intake & Output 02/25/19 02/26/19 02/27/19 02/28/19 23:59 23:59 23:59 23:59 Intake Total 430 0 Balance 430 0 Weight 160 lb 154 lb 153 lb 12.8 oz Neck: Supple Negative JVD No Bruit Cardiovascular: S1 S2 Regular Rate and Rhythm Respiratory: Diminished breath sounds at the bases bilaterally with scattered rhonchi Gastrointestinal: Soft Benign Normal Bowel Sounds Extremities: Negative Edema Labs: CBC, BMP 02/28/19 06:12 02/28/19 06:12 Assessment/Plan ASSESSMENT: 1. Clinical presentation is consistent with acute on chronic class I-II [employer] classification left ventricular failure, clinically resolving 2. Coronary artery disease angina pectoris 3. Persistent atypical atrial flutter [id number] score of 5 on DOAC's/Eliquis 4. Post ICD implantation question FUGITIVE DETECTIVE D 5. 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 Hypertensive cardiovascular disease 7. Hypercholesterolemia 8. Chronic kidney disease 9. Hyponatremia 10. Anemia PLAN: 1. Continue Coreg therapy and titrate dosage and discontinue Toprol-XL therapy, avoid dual beta-milena therapy utilization 2. Recommend the addition of Entresto therapy unless it is absolutely contraindicated with close monitoring of renal function and electrolytes 3. Continue Aldactone and Lasix therapies with caution and close monitoring of renal function and electrolytes 4. Continue Imdur 5. Recommend resumption of Eliquis therapy (at 5 mg twice daily) considering the above-noted [id number] score of 5 unless it is absolutely contraindicated and discontinuation of Ecotrin therapy 6. Continue Lipitor 7. Monitor sodium level, if further decrease diuretic therapy dosage may need to be adjusted Daria Julian MD
[2019-02-28] MEDS: ATORVASTATIN CA 40 MG TABLET (FP) PO SCH (21:55)
[2019-02-28] MEDS: CARVEDILOL 25 MG TABLET (FP) PO SCH (22:01)
[2019-02-28] MEDS: SACUBITRIL/VALSARTAN 24 MG-26 MG TABLET PO SCH (22:13)
[2019-03-01] MEDS: FUROSEMIDE 40 MG TABLET (FP) PO SCH ×2 (06:19→10:39)
[2019-03-01 07:03] LABS: BLOOD UREA NITROGEN 25.4 mg/dL (7-18); CALCIUM 8.9 mg/dL (8.5-10.1); CREATININE 1.1 mg/dL (0.55-1.3); POTASSIUM 4.6 mmol/L (3.5-5.1)
--- NOTE | 2019-03-01 07:17 | PN ---
Progress Note (short form) - Note Progress Note: Resting comfortably today in bed in AM. Vital Signs - 24 hr 02/28/19 02/28/19 02/28/19 09:00 09:07 14:00 Temperature 97.5 F L 97.2 F L Pulse Rate 70 66 Respiratory 20 20 20 Rate Blood Pressure 100/55 L 110/66 O2 Sat by Pulse 96 Oximetry (%) 02/28/19 02/28/19 03/01/19 18:00 20:40 02:00 Temperature 97.8 F 97.6 F 97.3 F L Pulse Rate 70 72 70 Respiratory 20 20 18 Rate Blood Pressure 125/75 131/76 98/62 O2 Sat by Pulse 94 L Oximetry (%) 03/01/19 06:00 Temperature 98.0 F Pulse Rate 70 Respiratory 18 Rate Blood Pressure 134/67 O2 Sat by Pulse Oximetry (%) Dr. Kelley cardiology consult appreciated. It appears reasonable to start Eliquis for chronic A.Flutter, CHADVASC SCORE 5. Entresto started for CHFrEF, COREG increased to 25 BID and SPIRONOLACTONE CONTINUED. CLOSE ELECTROLYTE monitoring continues.UA CX-< 51180 GNB. WILL DECREASE LASIX to 40 mg QD PO and follow for CHF SX. PE NECK-NO JVD, no bruits, no thyromegaly. LUNGS are CLEAR. HEART S1S2 regular , AICD palpable in situ. Abdomen soft, NT, no HSM. EXT- no CCE. Confused, not oriented to time and place, not recognizing family members or PMD. [place] Laboratory Results - last 24 hr 02/28/19 02/28/19 02/28/19 06:12 17:12 22:10 Sodium 131 L Potassium 4.5 Chloride 101 Carbon Dioxide 22 Anion Gap 7 L BUN 22.8 H Creatinine 1.2 Est GFR (CKD-EPI)AfAm 62.20 Est GFR (CKD-EPI)NonAf 53.67 POC Glucometer 116 120 Random Glucose 109 H Calcium 8.8 Total Bilirubin 1.5 H AST 21 ALT 15 Alkaline Phosphatase 68 Total Protein 6.2 L Albumin 3.3 L TSH 0.46 03/01/19 03/01/19 05:45 06:31 Sodium 130 L Potassium 4.6 Chloride 100 Carbon Dioxide 20 L Anion Gap 10 BUN 25.4 H Creatinine 1.1 Est GFR (CKD-EPI)AfAm 69.10 Est GFR (CKD-EPI)NonAf 59.62 POC Glucometer 122 Random Glucose 123 H Calcium 8.9 Total Bilirubin AST ALT Alkaline Phosphatase Total Protein Albumin TSH Current Active Problems Problem Status Onset Acute hyponatremia Acute CHF (congestive heart failure) Acute Colon cancer Acute Dehydration Acute Delirium due to conditions classified elsewhere Acute Dizziness Acute GERD (gastroesophageal reflux disease) Acute Generalized muscle weakness Acute HLD (hyperlipidemia) Acute Systolic CHF Acute Troponin level elevated Acute Plan PT for ambulation Follow BUN, CREAT, NA, K, Observe for CHF exacerbation. LASIX 40 mg QD D/C ASA, HEPARIN S/C Eliquis BID PO. Problem List - Problems (1) CHF (congestive heart failure) Code(s): I50.9 - HEART FAILURE, UNSPECIFIED Qualifiers: Heart failure type: systolic Heart failure chronicity: chronic Qualified Code(s): I50.22 - Chronic systolic (congestive) heart failure (2) Delirium due to conditions classified elsewhere Code(s): F05 - DELIRIUM DUE TO KNOWN PHYSIOLOGICAL CONDITION (3) Troponin level elevated Code(s): R79.89 - OTHER SPECIFIED ABNORMAL FINDINGS OF BLOOD CHEMISTRY (4) Dementia Code(s): F03.90 - UNSPECIFIED DEMENTIA WITHOUT BEHAVIORAL DISTURBANCE Qualifiers: Dementia type: unspecified type Dementia behavioral disturbance: with behavioral disturbance Qualified Code(s): F03.91 - Unspecified dementia with behavioral disturbance (5) Diabetes mellitus Code(s): E11.9 - TYPE 2 DIABETES MELLITUS WITHOUT COMPLICATIONS Qualifiers: Diabetes mellitus type: type 2 Diabetes mellitus complication status: without complication (6) Generalized muscle weakness Code(s): M62.81 - MUSCLE WEAKNESS (GENERALIZED) (7) Acute hyponatremia Code(s): E87.1 - HYPO-OSMOLALITY AND HYPONATREMIA (8) Dizziness Code(s): R42 - DIZZINESS AND GIDDINESS
[2019-03-01] MEDS ORDERED: PT OWN MED DRAWER 7, Y5N ONE (09:25)
[2019-03-01] MEDS ORDERED: APIXABAN 5 MG TABLET PO SCH (10:00)
[2019-03-01] MEDS: FAMOTIDINE 20 MG TABLET PO SCH (10:38)
[2019-03-01] MEDS: CARVEDILOL 25 MG TABLET (FP) PO SCH (10:38)
[2019-03-01] MEDS: SACUBITRIL/VALSARTAN 24 MG-26 MG TABLET PO SCH (10:38)
[2019-03-01] MEDS: ISOSORBIDE MONONITRATE 60 MG TAB.SR.24H (FP) PO SCH (10:38)
[2019-03-01] MEDS: clonazePAM 0.5 MG TABLET PO SCH (10:38)
[2019-03-01] MEDS: SPIRONOLACTONE 25 MG TABLET (FP) PO SCH (10:39)
[2019-03-01] MEDS: ESCITALOPRAM OXALATE 10 MG TABLET (FP) PO SCH (10:39)
[2019-03-01] MEDS: POLYETHYLENE GLYCOL 3350 119 GM BTL PO SCH ×2 (10:40→21:37)
[2019-03-01] MEDS ORDERED: SODIUM CHLORIDE 0.9% 500 ML INFUS.BAG IV ONE (12:57)
[2019-03-01] MEDS ORDERED: SODIUM CHLORIDE 1,000 ML IV SCH (16:00)
--- NOTE | 2019-03-01 18:56 | CONSULT ---
Consultation: REQUESTING PROVIDER: Dr. Lal CONSULT REQUEST: We have been asked to medically evaluate this patient for hypotension. HISTORY OF PRESENT ILLNESS: 89 y.o. Sami-speaking M PMH systolic CHF w/ severely reduced EF (last echo @ [facility]) s/p ICD placement in 2016, HTN, colon & prostate CA, dementia presented 02/26/19 for AMS. Patient seen by psych, continuing home meds klonopin & lexapro. During this admission pt found to have a tropinemia which has downtrended. Initially the patient was restarted on his home anti-htn medications (Imdur 60mg BID, losartan 100mg daily, lopressor 100mg daily, aldactone 25mg daily, coreg 3.125mg BID) which were increased yesterday to Coreg 25mg BID (received total 2 doses, last dose this morning) w/ addition of Entresto. This morning patient noted to be hypotensive with systolics as low as 50's. Coreg 25mg & entresto have been d/c'd, restarted on home dose 3.125mg coreg w/ improvement of BP. Latest read on my visit w/ patient 90s/60s. REVIEW OF SYSTEMS: CONSTITUTIONAL: generalized weakness Absent: fever, chills, diaphoresis, malaise, loss of appetite, weight change HEENT: Absent: rhinorrhea, nasal congestion, throat pain, throat swelling, difficulty swallowing, mouth swelling, ear pain, eye pain, visual changes CARDIOVASCULAR: Absent: chest pain, syncope, palpitations, irregular heart rate, lightheadedness , peripheral edema RESPIRATORY: Absent: cough, shortness of breath, dyspnea with exertion, orthopnea, wheezing, stridor, hemoptysis GASTROINTESTINAL: Absent: abdominal pain, abdominal distension, nausea, vomiting, diarrhea, constipation, melena, hematochezia GENITOURINARY: Absent: dysuria, frequency, urgency, hesitancy, hematuria, flank pain, genital pain MUSCULOSKELETAL: Absent: myalgia, arthralgia, joint swelling, back pain, neck pain SKIN: Absent: rash, itching, pallor HEMATOLOGIC/IMMUNOLOGIC: Absent: easy bleeding, easy bruising, lymphadenopathy, frequent infections ENDOCRINE: Absent: unexplained weight gain, unexplained weight loss, heat intolerance, cold intolerance NEUROLOGIC: mental status changes Absent: headache, focal weakness or paresthesias, dizziness, unsteady gait, seizure, bladder or bowel incontinence PSYCHIATRIC: Absent: anxiety, depression, suicidal or homicidal ideation, hallucinations. PHYSICAL EXAMINATION Vital Signs - 24 hr 02/28/19 03/01/19 03/01/19 20:40 02:00 06:00 Temperature 97.6 F 97.3 F L 98.0 F Pulse Rate 72 70 70 Respiratory 20 18 18 Rate Blood Pressure 131/76 98/62 134/67 O2 Sat by Pulse 94 L Oximetry (%) 03/01/19 03/01/19 03/01/19 09:00 10:00 14:00 Temperature 97.4 F L 97.5 F L Pulse Rate 70 72 Respiratory 18 18 Rate Blood Pressure 103/62 121/75 O2 Sat by Pulse 95 Oximetry (%) GENERAL: Sleeping but arousable. Unable to assess mentation. Family reports patient is altered from baseline. HEENT: Conjunctiva clear. No JVD. LUNGS: CTABL HEART: RRR no mrg ABDOMEN: Soft NTND +BS EXTR: No periph edema noted Laboratory Results - last 24 hr 02/28/19 03/01/19 03/01/19 22:10 05:45 06:31 Sodium 130 L Potassium 4.6 Chloride 100 Carbon Dioxide 20 L Anion Gap 10 BUN 25.4 H Creatinine 1.1 Est GFR (CKD-EPI)AfAm 69.10 Est GFR (CKD-EPI)NonAf 59.62 POC Glucometer 120 122 Random Glucose 123 H Calcium 8.9 03/01/19 03/01/19 12:19 16:44 Sodium Potassium Chloride Carbon Dioxide Anion Gap BUN Creatinine Est GFR (CKD-EPI)AfAm Est GFR (CKD-EPI)NonAf POC Glucometer 206 143 Random Glucose Calcium Active Medications Generic Name Dose Route Start Last Admin Trade Name Freq PRN Reason Stop Dose Admin Acetaminophen 650 mg 02/26/19 23:09 Tylenol - PO Q6H PRN PAIN LEVEL 1-5 Aspirin 81 mg 03/02/19 10:00 Asa - PO DAILY SUDHAKAR Atorvastatin Calcium 80 mg 02/27/19 22:00 02/28/19 21:55 Lipitor - PO 80 mg HS SUDHAKAR Administration Carvedilol 3.125 mg 03/01/19 22:00 Coreg - PO BID SUDHAKAR Famotidine 20 mg 02/27/19 10:00 03/01/19 10:38 Pepcid - PO 20 mg DAILY [facility]AR Administration Furosemide 40 mg 03/01/19 10:00 03/01/19 10:39 Lasix - PO 40 mg DAILY SUDHAKAR Administration Sodium Chloride 1,000 mls @ 75 mls/hr 03/01/19 16:00 03/01/19 16:06 Normal Saline - IV 75 mls/hr ASDIR SUDHAKAR Administration Isosorbide Mononitrate 60 mg 03/02/19 10:00 Imdur - PO DAILY SUDHAKAR Polyethylene Glycol 17 gm 02/27/19 10:00 03/01/19 10:40 Miralax (For Daily Use) - PO Not Given BID SUDHAKAR Spironolactone 25 mg 02/27/19 10:00 03/01/19 10:39 Aldactone - PO 25 mg DAILY [facility] Administration ASSESSMENT/PLAN: 89 y.o. M PMH systolic CHF w/ severely reduced EF ([facility]) s/p ICD placement in 2016, HTN, colon & prostate CA, dementia presented 02/26/19 for AMS. Cardio: Hypotension resolving s/p NS & home dose coreg; entresto d/c'd Dispo: As patient's BP and mental status improving w/ current management, no ICU monitoring at this time. Continue care as per primary team. Thank you for this consultative opportunity. Visit type - Emergency Visit Emergency Visit: No - New Patient This patient is new to me today: No - Critical Care Critical Care patient: Yes Total Critical Care Time (in minutes): 36 Critical Care Statement: The care of this patient involved high complexity decision making to prevent further life threatening deterioration of the patient 's condition and/or to evaluate & treat vital organ system(s) failure or risk of failure. ATTENDING PHYSICIAN STATEMENT I saw and evaluated the patient. I reviewed the resident's note and discussed the case with the resident. I agree with the resident's findings and plan as documented. SUBJECTIVE: OBJECTIVE: ASSESSMENT AND PLAN:
[2019-03-01] MEDS: ATORVASTATIN CA 40 MG TABLET (FP) PO SCH (21:36)
[2019-03-01] MEDS: CARVEDILOL 3.125 MG TABLET (FP) PO SCH (21:38)
[2019-03-01] MEDS ORDERED: CHLORHEXIDINE GLUCONATE 4% CLEANSER FOR DECOLONIZATION TP SCH (22:00)
[2019-03-01] MEDS ORDERED: MUPIROCIN 2% TOPICAL OINTMENT FOR DECOLONIZATION NS SCH (22:00)
[2019-03-02 07:26] LABS: BLOOD UREA NITROGEN 30.8 mg/dL (7-18); CALCIUM 8.7 mg/dL (8.5-10.1); CREATININE 1.4 mg/dL (0.55-1.3); POTASSIUM 4.2 mmol/L (3.5-5.1)
--- NOTE | 2019-03-02 09:18 | PN ---
Progress Note (short form) - Note Progress Note: Episode of hypotension yesterday after Entesto/ Coreg 25 requiring IV boluses NS 250 x2 and NS 75 cc/hr. Due to somnolence Clonazepam was held last night. Risk of falls and bleeding discussed with cardiology and children. ASA was restarted and Eliquis d/c. Na appears stable at 131. Vital Signs (72 hours) 02/27/19 02/27/19 02/27/19 12:42 14:55 15:15 Temperature 98.7 F 98.6 F 97.8 F Pulse Rate 70 Pulse Rate [ 70 70 Left] Respiratory 17 19 20 Rate Blood Pressure 94/62 Blood Pressure 96/58 L 96/56 L [Left Arm] O2 Sat by Pulse 100 100 96 Oximetry (%) 02/27/19 02/27/19 02/28/19 21:00 21:17 01:47 Temperature 97.8 F 97.5 F L Pulse Rate 70 70 Pulse Rate [ Left] Respiratory 20 20 Rate Blood Pressure 110/67 105/68 Blood Pressure [Left Arm] O2 Sat by Pulse 96 Oximetry (%) 02/28/19 02/28/19 02/28/19 05:42 09:00 09:07 Temperature 97.6 F 97.5 F L Pulse Rate 70 70 Pulse Rate [ Left] Respiratory 20 20 20 Rate Blood Pressure 118/69 100/55 L Blood Pressure [Left Arm] O2 Sat by Pulse 96 Oximetry (%) 02/28/19 02/28/19 02/28/19 14:00 18:00 20:40 Temperature 97.2 F L 97.8 F 97.6 F Pulse Rate 66 70 72 Pulse Rate [ Left] Respiratory 20 20 20 Rate Blood Pressure 110/66 125/75 131/76 Blood Pressure [Left Arm] O2 Sat by Pulse 94 L Oximetry (%) 03/01/19 03/01/19 03/01/19 02:00 06:00 09:00 Temperature 97.3 F L 98.0 F Pulse Rate 70 70 Pulse Rate [ Left] Respiratory 18 18 18 Rate Blood Pressure 98/62 134/67 Blood Pressure [Left Arm] O2 Sat by Pulse 95 Oximetry (%) 03/01/19 03/01/19 03/01/19 10:00 14:00 17:00 Temperature 97.4 F L 97.5 F L 98.0 F Pulse Rate 70 72 70 Pulse Rate [ Left] Respiratory 18 20 Rate Blood Pressure 103/62 121/75 86/50 L Blood Pressure [Left Arm] O2 Sat by Pulse Oximetry (%) 03/01/19 03/01/19 03/01/19 19:30 21:00 22:40 Temperature 98 F Pulse Rate 70 71 70 Pulse Rate [ Left] Respiratory 18 20 20 Rate Blood Pressure 93/60 118/68 112/65 Blood Pressure [Left Arm] O2 Sat by Pulse 96 Oximetry (%) 03/02/19 03/02/19 03/02/19 00:53 03:19 05:40 Temperature 98.2 F 98 F Pulse Rate 70 70 71 Pulse Rate [ Left] Respiratory 20 18 18 Rate Blood Pressure 115/67 125/65 110/63 Blood Pressure [Left Arm] O2 Sat by Pulse Oximetry (%) 03/02/19 07:50 Temperature 98.1 F Pulse Rate 70 Pulse Rate [ Left] Respiratory 19 Rate Blood Pressure 99/64 Blood Pressure [Left Arm] O2 Sat by Pulse 95 Oximetry (%) Today arousable, awake during exam. Lungs are Clear. Heart s1s2 regular. Abdomen soft, NT/ND + BM yesterday Monitor paced rhythm on the monitor. Ext no CCE. Moves all extremities. Laboratory Results - last 24 hr 03/01/19 03/01/19 03/02/19 12:19 16:44 06:23 Sodium 131 L Potassium 4.2 Chloride 101 Carbon Dioxide 23 Anion Gap 7 L BUN 30.8 H Creatinine 1.4 H Est GFR (CKD-EPI)AfAm 51.62 Est GFR (CKD-EPI)NonAf 44.54 POC Glucometer 206 143 Random Glucose 107 H Calcium 8.7 03/02/19 06:48 Sodium Potassium Chloride Carbon Dioxide Anion Gap BUN Creatinine Est GFR (CKD-EPI)AfAm Est GFR (CKD-EPI)NonAf POC Glucometer 111 Random Glucose Calcium Current Active Problems Problem Status Onset Acute hyponatremia Acute CHF (congestive heart failure) Acute Colon cancer Acute Dehydration Acute Delirium due to conditions classified elsewhere Acute Dizziness Acute GERD (gastroesophageal reflux disease) Acute Generalized muscle weakness Acute HLD (hyperlipidemia) Acute Systolic CHF Acute Troponin level elevated Acute Plan Dectrease Clonazepam 0.25 mg HS Continue meds-Furosemide 40 mg QD/ Spironolactone 12.5 QD Follow electrolytes, BUN, CREAT PT for ambulation and strengthening. Rehab transfer. Problem List - Problems (1) CHF (congestive heart failure) Code(s): I50.9 - HEART FAILURE, UNSPECIFIED Qualifiers: Heart failure type: systolic Heart failure chronicity: chronic Qualified Code(s): I50.22 - Chronic systolic (congestive) heart failure (2) Delirium due to conditions classified elsewhere Code(s): F05 - DELIRIUM DUE TO KNOWN PHYSIOLOGICAL CONDITION (3) Troponin level elevated Code(s): R79.89 - OTHER SPECIFIED ABNORMAL FINDINGS OF BLOOD CHEMISTRY (4) Dementia Code(s): F03.90 - UNSPECIFIED DEMENTIA WITHOUT BEHAVIORAL DISTURBANCE Qualifiers: Dementia type: unspecified type Dementia behavioral disturbance: with behavioral disturbance Qualified Code(s): F03.91 - Unspecified dementia with behavioral disturbance (5) Diabetes mellitus Code(s): E11.9 - TYPE 2 DIABETES MELLITUS WITHOUT COMPLICATIONS Qualifiers: Diabetes mellitus type: type 2 Diabetes mellitus complication status: without complication (6) Generalized muscle weakness Code(s): M62.81 - MUSCLE WEAKNESS (GENERALIZED) (7) Acute hyponatremia Code(s): E87.1 - HYPO-OSMOLALITY AND HYPONATREMIA (8) Dizziness Code(s): R42 - DIZZINESS AND GIDDINESS
[2019-03-02] MEDS ORDERED: ISOSORBIDE MONONITRATE 60 MG TAB.SR.24H (FP) PO SCH (10:00)
[2019-03-02] MEDS ORDERED: ASPIRIN 81 MG CHEWABLE TABLETS PO SCH (10:00)
[2019-03-02] MEDS ORDERED: clonazePAM 0.5 MG TABLET PO SCH ×2 (10:00→15:49)
[2019-03-02] MEDS: FUROSEMIDE 40 MG TABLET (FP) PO SCH (10:20)
[2019-03-02] MEDS: CARVEDILOL 3.125 MG TABLET (FP) PO SCH (10:20)
[2019-03-02] MEDS: SPIRONOLACTONE 25 MG TABLET (FP) PO SCH (10:20)
[2019-03-02] MEDS: POLYETHYLENE GLYCOL 3350 119 GM BTL PO SCH (10:21)
[2019-03-02] MEDS: FAMOTIDINE 20 MG TABLET PO SCH (10:21)
[2019-03-02] MEDS ORDERED: SPIRONOLACTONE 25 MG TABLET (FP) PO SCH (15:49)
--- NOTE | 2019-03-02 16:10 | DS ---
Physical Examination Vital Signs: Vital Signs Temperature 98.1 F 03/02/19 07:50 Pulse Rate 82 03/02/19 11:46 Respiratory Rate 19 03/02/19 07:50 Blood Pressure 97/59 L 03/02/19 12:15 O2 Sat by Pulse Oximetry (%) 95 03/02/19 07:50 Constitutional: Yes: No Distress, Calm Eyes: Yes: Conjunctiva Clear, EOM Intact HENT: Yes: Atraumatic, Normocephalic Neck: Yes: Supple, Trachea Midline Cardiovascular: Yes: Regular Rate and Rhythm, S1, S2, Other (AICD) Respiratory: Yes: Regular, CTA Bilaterally Gastrointestinal: Yes: Normal Bowel Sounds, Soft ...Rectal Exam: Yes: Deferred Renal/: Yes: WNL. No: Anuria, Bladder Distention, CVA Tenderness - Left, CVA Tenderness - Right, Carranza Present, Hematuria, Incontinence, Oliguria, Polyuria, Scrotal Edema, Urethral Discharge, Other Musculoskeletal: Yes: Muscle Weakness Edema: No Wound/Incision: Yes: Unapproximated Neurological: Yes: Alert ...Motor Strength: WNL Psychiatric: Yes: Alert Labs: CBC, BMP 02/28/19 06:12 03/02/19 06:23 Discharge Summary Problems reviewed: Yes Reason For Visit: ELEVATED TROPONIN LEVEL,ALTERED MENTAL STATUS Current Active Problems Acute hyponatremia (Acute) CHF (congestive heart failure) (Acute) Colon cancer (Acute) Dehydration (Acute) Delirium due to conditions classified elsewhere (Acute) Dizziness (Acute) GERD (gastroesophageal reflux disease) (Acute) Generalized muscle weakness (Acute) HLD (hyperlipidemia) (Acute) Systolic CHF (Acute) Troponin level elevated (Acute) - Instructions Referrals: Ze Lloyd MD [Primary Care Provider] - - Home Medications Comprehensive Discharge Medication List: Ambulatory Orders Atorvastatin Ca [Lipitor] 1 tab PO DAILY 12/24/13 Isosorbide Mononitrate [Isosorbide Mononitrate ER] 60 mg PO BID 01/06/18 Spironolactone [Aldactone -] 25 mg PO DAILY 01/06/18 Potassium Chloride [Potassium Chloride Oral Liquid] 40 meq PO DAILY 30 Days cup 01/09/18 Escitalopram Oxalate [Lexapro -] 5 mg PO DAILY tablet 03/01/19 Famotidine [Pepcid -] 20 mg PO DAILY tablet 03/01/19 Polyethylene Glycol 3350 [Miralax 119 gm Btl -] 17 gm PO BID bottle 03/01/19 Aspirin [ASA -] 81 mg PO DAILY tab.chew 03/02/19 Carvedilol [Coreg -] 3.125 mg PO BID tablet 03/02/19 Furosemide [Lasix -] 40 mg PO DAILY #60 tablet 03/02/19 Spironolactone 12.5 mg PO AM #30 tablet 03/02/19 clonazePAM [Klonopin -] 0.25 mg PO HS 7 Days #30 tablet MDD 0.25 mg 03/02/19
[2019-03-02 20:27] VITALS: BP 115/72; PULSE 71; TEMP 97.6
== END 2019-03-02 20:30 | DRG 884 ==
LOC: JER 17:18 → JERBED 21:14 → J4W 02-27 15:04
PROVIDERS: ADMIT Internal Medicine; ATTEND Internal Medicine
DX: F03.91 Unspecified dementia, unspecified severity, with behavioral disturbance (principal); I50.21 Acute systolic (congestive) heart failure; G93.41 Metabolic encephalopathy; E87.1 Hypo-osmolality and hyponatremia; F05 Delirium due to known physiological condition; C18.9 Malignant neoplasm of colon, unspecified; I48.92 Unspecified atrial flutter; I10 Essential (primary) hypertension; C61 Malignant neoplasm of prostate; E78.5 Hyperlipidemia, unspecified; E86.0 Dehydration; E11.9 Type 2 diabetes mellitus without complications; K21.9 Gastro-esophageal reflux disease without esophagitis; R79.89 Other specified abnormal findings of blood chemistry; R42 Dizziness and giddiness; I95.9 Hypotension, unspecified; I25.119 Atherosclerotic heart disease of native coronary artery with unspecified angina pectoris; D64.9 Anemia, unspecified
CPT/HCPCS: 36415; 70450-TC; 71045-TC-FY; 80048; 80053; 80061; 81003; 82550; 82553; 82962; 83721; 83735; 84100; 84443; 84484; 85025; 85027; 87086; 93005; 93010; 97116-GP; 97161-GP; 99284-25; J1644; J7030